=== PATIENT | male | born 1980 | race Caucasian/White ===

== ENCOUNTER 2016-08-03 08:58 | Emergency (ER) | payer OTHER ==
[2016-08-03] MEDS ORDERED: SODIUM CHLORIDE 0.9% 1,000 ML IV ONE (09:26)
--- NOTE | 2016-08-03 09:35 | ED ---
General Adult HPI - General Chief complaint: Back Pain/Injury Stated complaint: back pain Time Seen by Provider: 08/03/16 09:15 Source: patient Mode of arrival: ambulatory Limitations: physical limitation - History of Present Illness Initial comments: 36-year-old male patient presents emergency Department stay for complaints of left posterior rib pain that radiates around to the front. Patient states that this started about a week ago. Patient states at that time he did have one day with some hematuria, but states that has resolved. Patient is also complaining of abdominal soreness. He denies any nausea, vomiting, constipation, diarrhea, urinary urgency, urinary frequency current hematuria, or dysuria. Patient denies any chest pain or shortness of breath. He denies any fever or chills. Patient denies any history of kidney stones. Patient states that occasionally the pain will come on like a spasm, will let up some, but he has a constant dull ache. 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 He denies any trauma or injury. - Related Data Home Medications Medication Instructions Recorded Confirmed Ibuprofen [Motrin] 400 mg PO Q6HR PRN 08/03/16 08/03/16 Previous Rx's Medication Instructions Recorded Cyclobenzaprine [Flexeril] 10 mg PO TID PRN #15 tab 08/03/16 Ibuprofen [Motrin] 600 mg PO Q6HR PRN #30 tab 08/03/16 Allergies Allergy/AdvReac Type Severity Reaction Status Date / Time No Known Allergies Allergy Verified 08/03/16 09:25 Review of Systems ROS Statement: Those systems with pertinent positive or pertinent negative responses have been documented in the HPI. ROS Other: All systems not noted in ROS Statement are negative. Past Medical History Past Medical History: No Reported History History of Any Multi-Drug Resistant Organisms: None Reported Additional Past Surgical History / Comment(s): THUMB Past Psychological History: No Psychological Hx Reported Smoking Status: Current every day smoker Past Alcohol Use History: Occasional Past Drug Use History: None Reported General Exam Limitations: physical limitation General appearance: alert, in no apparent distress Head exam: Present: atraumatic, normocephalic, normal inspection Eye exam: Present: normal appearance, PERRL, EOMI. Absent: scleral icterus, conjunctival injection, periorbital swelling ENT exam: Present: normal exam, mucous membranes moist Neck exam: Present: normal inspection. Absent: tenderness, meningismus, lymphadenopathy Respiratory exam: Present: normal lung sounds bilaterally. Absent: respiratory distress, wheezes, rales, rhonchi, stridor Cardiovascular Exam: Present: regular rate, normal rhythm, normal heart sounds. Absent: systolic murmur, diastolic murmur, rubs, gallop, clicks GI/Abdominal exam: Present: soft, tenderness (Generalized abdominal tenderness) , guarding, normal bowel sounds. Absent: distended, rebound, rigid, organomegaly, mass, other Extremities exam: Present: normal inspection, full ROM, normal capillary refill. Absent: tenderness, pedal edema, joint swelling, calf tenderness Back exam: Present: normal inspection, full ROM, tenderness (Left posterior rib tenderness), CVA tenderness (L), paraspinal tenderness. Absent: CVA tenderness (R), vertebral tenderness, rash noted Neurological exam: Present: alert, oriented X3, CN II-XII intact Psychiatric exam: Present: normal affect, normal mood Skin exam: Present: warm, dry, intact, normal color. Absent: rash Course Vital Signs 08/03/16 09:08 Temperature 99.2 F Pulse Rate 85 Respiratory 18 Rate Blood Pressure 121/77 O2 Sat by Pulse 99 Oximetry Medical Decision Making - Medical Decision Making 36-year-old male patient presented for evaluation of left posterior rib pain and abdominal pain. KUB and chest x-ray were negative for any acute process. Urinalysis did show 14 white blood cells. GC chlamydia and culture added onto the urine. Patient will be treated for urinary tract infection at this time pending results of the culture. Discharged home with antibiotics. Instructions to return for any new, worsening, or concerning symptoms. Instructed to follow up with his primary care physician in one to days. Patient verbalizes understanding and agrees with this plan. - Lab Data Result diagrams: 08/03/16 09:40 08/03/16 09:40 Lab Results 08/03/16 08/03/16 08/03/16 Range/Units 09:40 09:40 09:40 WBC 7.5 (3.8-10.6) k/uL RBC 4.85 (4.30-5.90) m/uL Hgb 14.9 (13.0-17.5) gm/dL Hct 45.4 (39.0-53.0) % MCV 93.7 (80.0-100.0) fL MCH 30.7 (25.0-35.0) pg MCHC 32.8 (31.0-37.0) g/dL RDW 14.1 (11.5-15.5) % Plt Count 255 (150-450) k/uL Neutrophils % 77 % Lymphocytes % 15 % Monocytes % 5 % Eosinophils % 1 % Basophils % 0 % Neutrophils # 5.8 (1.3-7.7) k/uL Lymphocytes # 1.1 (1.0-4.8) k/uL Monocytes # 0.4 (0-1.0) k/uL Eosinophils # 0.1 (0-0.7) k/uL Basophils # 0.0 (0-0.2) k/uL Sodium 141 (137-145) mmol/L Potassium 4.1 (3.5-5.1) mmol/L Chloride 104 (98-107) mmol/L Carbon Dioxide 28 (22-30) mmol/L Anion Gap 9 mmol/L BUN 12 (9-20) mg/dL Creatinine 0.94 (0.66-1.25) mg/dL Est GFR (MDRD) Af Amer >60 (>60 ml/min/1.73 sqM) Est GFR (MDRD) Non-Af >60 (>60 ml/min/1.73 sqM) Glucose 86 (74-99) mg/dL Calcium 9.4 (8.4-10.2) mg/dL Total Bilirubin 0.7 (0.2-1.3) mg/dL AST 45 (17-59) U/L ALT 35 (21-72) U/L Alkaline Phosphatase 104 (38-126) U/L Total Protein 7.4 (6.3-8.2) g/dL Albumin 4.0 (3.5-5.0) g/dL Amylase 52 (30-110) U/L Lipase 60 (23-300) U/L Urine Color Yellow Urine Appearance Clear (Clear) Urine pH 5.5 (5.0-8.0) Ur Specific Sophia 1.012 (1.001-1.035) Urine Protein Negative (Negative) Urine Glucose (UA) Negative (Negative) Urine Ketones Negative (Negative) Urine Blood Negative (Negative) Urine Nitrite Negative (Negative) Urine Bilirubin Negative (Negative) Urine Urobilinogen <2.0 (<2.0) mg/dL Ur Leukocyte Esterase Small H (Negative) Urine RBC 1 (0-5) /hpf Urine WBC 15 H (0-5) /hpf Disposition Clinical Impression: Muscle spasm Disposition: HOME SELF-CARE Instructions: Muscle Spasm (ED) Additional Instructions: Warm moist heat to the painful areas. 20 minutes at a time at least 4 times per day. Take muscle relaxers and anti-inflammatory pain medications as needed. Follow-up with primary care physician for continuing symptoms. Return for any new, worsening, or concerning symptoms. Prescriptions: Cyclobenzaprine [Flexeril] 10 mg PO TID PRN #15 tab PRN Reason: Muscle Spasm Ibuprofen [Motrin] 600 mg PO Q6HR PRN #30 tab PRN Reason: Pain Referrals: None,Stated [Primary Care Provider] - 1-2 days Time of Disposition: 10:52
[2016-08-03 09:53] LABS: Basophils % (A) 0 %; CH 30.9; CHCM 33.2; Eosinophils # (A) 0.1 k/uL (0-0.7); Eosinophils % (A) 1 %; HCT 45.4 % (39.0-53.0); HDW 2.46; HGB 14.9 gm/dL (13.0-17.5); Luc % (Auto) 1; Lymphocytes # (A) 1.1 k/uL (1.0-4.8); Lymphocytes % (A) 15 %; MCH 30.7 pg (25.0-35.0); MCHC 32.8 g/dL (31.0-37.0); MCV 93.7 fL (80.0-100.0); Mean Platelet Volume 7.4; Monocytes # (A) 0.4 k/uL (0-1.0); Monocytes % (A) 5 %; Neutrophils # (A) 5.8 k/uL (1.3-7.7); Neutrophils % (A) 77 %; RBC 4.85 m/uL (4.30-5.90); RDW 14.1 % (11.5-15.5); WBC 7.5 k/uL (3.8-10.6)
[2016-08-03 09:55] LABS: Appearance,Urine Clear (Clear); Bilirubin,Urine Negative (Negative); Glucose,Urine (UA) Negative (Negative); Ketones,Urine Negative (Negative); Leukocyte Esterase,Urine Small (Negative); Nitrite,Urine Negative (Negative); PH, Urine 5.5 (5.0-8.0); Particle Count 759; Protein,Urine Negative (Negative); RBC,Urine 1 /hpf (0-5); Specific Gravity,Urine 1.012 (1.001-1.035); UA Billing (MACRO vs. MICRO) MICRO; Urobilinogen,Urine <2.0 mg/dL (<2.0); WBC,Urine 15 /hpf (0-5)
[2016-08-03 10:04] LABS: ALT 35 U/L (21-72); AST 45 U/L (17-59); Alkaline Phosphatase 104 U/L (38-126); Amylase 52 U/L (30-110); Anion Gap 9 mmol/L; Blood Urea Nitrogen 12 mg/dL (9-20); Calcium 9.4 mg/dL (8.4-10.2); Carbon Dioxide 28 mmol/L (22-30); Chloride 104 mmol/L (98-107); Glucose 86 mg/dL (74-99); Non-African American GFR(MDRD) >60 (>60 ml/min/1.73 sqM); Potassium 4.1 mmol/L (3.5-5.1); Sodium 141 mmol/L (137-145); Total Bilirubin 0.7 mg/dL (0.2-1.3); Total Protein 7.4 g/dL (6.3-8.2)
--- NOTE | 2016-08-03 10:33 | XR ---
EXAMINATION TYPE: XR chest 2V DATE OF EXAM: 08/03/2016 10:23 AM COMPARISON: NONE HISTORY: Left-sided chest pain. TECHNIQUE: Frontal and lateral views of the chest are obtained. FINDINGS: There is no focal air space opacity, pleural effusion, or pneumothorax seen. The cardiac silhouette size is within normal limits. The osseous structures are intact. IMPRESSION: No acute cardiopulmonary process.
--- NOTE | 2016-08-03 10:37 | XR ---
EXAMINATION TYPE: XR KUB DATE OF EXAM: 08/03/2016 10:23 AM CLINICAL HISTORY: Left-sided abdominal pain. TECHNIQUE: 2 upright KUB images of the abdomen are obtained. COMPARISON: None. FINDINGS: Scattered gas is seen in non-distended small bowel loops. Gas and fecal material is seen in non-distended colon. There is no visceromegaly, pneumoperitoneum, or abnormal calcification appr eciated. The lung bases are clear and the osseous structures are intact. IMPRESSION: Overall nonobstructive bowel gas pattern.
[2016-08-03] MEDS ORDERED: KETOROLAC 30 MG/ML 1 ML VIAL IVP STA (10:50)
[2016-08-03] MEDS ORDERED: ORPHENADRINE 30 MG/ML 2 ML VIAL IVP STA (10:50)
[2016-08-03 11:34] VITALS: BP 164/91; PULSE 65; RESP 16; TEMP 98.1
== END 2016-08-03 11:33 | disposition home or self-care (01) ==
LOC: EC 08:58
DX: M62.830 Muscle spasm of back (principal); N39.0 Urinary tract infection, site not specified; F17.200 Nicotine dependence, unspecified, uncomplicated; R07.81 Pleurodynia
CPT/HCPCS: 96361 ×2; 96374 ×2; 96375 ×2; 99283 ×2; 36415; 80053; 82150; 83690; 85025; 81001; 71020; 74000; J2360; J1885

== ENCOUNTER 2019-11-25 13:02 | Observation (INO) | payer OTHER ==
[2019-11-25 13:49] LABS: Basophils % (A) 1 %; Eosinophils % (A) 1 %; HCT 48.8 % (39.0-53.0); HGB 15.7 gm/dL (13.0-17.5); Lymphocytes # (A) 1.3 k/uL (1.0-4.8); Lymphocytes % (A) 24 %; MCH 31.7 pg (25.0-35.0); MCHC 32.3 g/dL (31.0-37.0); MCV 98.4 fL (80.0-100.0); Mean Platelet Volume 7.9; Monocytes # (A) 0.4 k/uL (0-1.0); Monocytes % (A) 8 %; Neutrophils # (A) 3.3 k/uL (1.3-7.7); Neutrophils % (A) 63 %; Platelet Count 227 k/uL (150-450); RBC 4.96 m/uL (4.30-5.90); RDW 14.2 % (11.5-15.5); WBC 5.3 k/uL (3.8-10.6)
[2019-11-25 13:58] LABS: ALT 252 U/L (4-49); AST 231 U/L (17-59); African American GFR (CKD) >90 (>60 ml/min/1.73 sqM); Albumin 5.3 g/dL (3.5-5.0); Alkaline Phosphatase 97 U/L (38-126); Anion Gap 19 mmol/L; Blood Urea Nitrogen 22 mg/dL (9-20); Calcium 9.5 mg/dL (8.4-10.2); Carbon Dioxide 19 mmol/L (22-30); Chloride 101 mmol/L (98-107); Glucose 105 mg/dL (74-99); Non-African American GFR(CKD) >90 (>60 ml/min/1.73 sqM); Potassium 4.4 mmol/L (3.5-5.1); Sodium 139 mmol/L (137-145); Total Bilirubin 0.9 mg/dL (0.2-1.3); Total Protein 8.3 g/dL (6.3-8.2)
[2019-11-25 14:00] LABS: INR 0.9 (<1.2); Partial Thromboplastin Time 23.1 sec (22.0-30.0); Prothrombin Time 9.8 sec (9.0-12.0)
--- NOTE | 2019-11-25 14:12 | ED ---
Neuro HPI - General Chief Complaint: Neuro Symptoms/Deficit Stated Complaint: stroke yesterday Source: patient Mode of arrival: ambulatory Limitations: no limitations - History of Present Illness Is the patient presenting with stroke symptoms?: Yes Last Known Well Date: 11/24/19 Last Known Well Time: 13:30 Initial Comments: Patient is a 39-year-old male with past history of TIA presents emergency room with reported CVA. Patient went into [facility] yesterday at 3 PM after he started experiencing symptoms of a possible stroke. He states around 2 PM he had left-sided hand weakness and complete paralysis of his left lower extremity. He was also having some stuttering. Workup was performed at [facility] to include a CT of the head and CT angiography. Patient was told that he possibly had a stroke and they wanted to transfer him to [facility]. Patient refused to go by ambulance. Patient states that he did have his drive him down there however when they arrived they noted that they were having any visitors and so the patient left. He presents today with the same symptoms. Denies any worsening or improvement of his paralysis. No facial droop. Patient has stuttering however no slurred speech. Decreased sensation in the left lower extremity. Patient able to extend his arm however cannot use his left hand. He denies any chest pain or shortness of breath. No fevers or chills. No recent blunt head trauma. No other alleviating, prec ipitating or modifying factors - Related Data Home Medications: Home Medications Medication Instructions Recorded Confirmed No Known Home Medications 11/25/19 11/25/19 Allergies/Adverse Reactions: Allergies Allergy/AdvReac Type Severity Reaction Status Date / Time amoxicillin Allergy Anaphylaxis Verified 11/25/19 14:31 bee pollen Allergy Anaphylaxis Verified 11/25/19 14:31 Penicillins Allergy Anaphylaxis Verified 11/25/19 14:31 Review of Systems ROS Statement: Those systems with pertinent positive or pertinent negative responses have been documented in the HPI. ROS Other: All systems not noted in ROS Statement are negative. General Exam Limitations: no limitations General appearance: alert, in no apparent distress Head exam: Present: atraumatic, normocephalic, normal inspection Eye exam: Present: normal appearance, PERRL, EOMI. Absent: scleral icterus, conjunctival injection, periorbital swelling ENT exam: Present: normal exam, mucous membranes moist Neck exam: Present: normal inspection. Absent: tenderness, meningismus, lymphadenopathy Respiratory exam: Present: normal lung sounds bilaterally. Absent: respiratory distress, wheezes, rales, rhonchi, stridor Cardiovascular Exam: Present: regular rate, normal rhythm, normal heart sounds. Absent: systolic murmur, diastolic murmur, rubs, gallop, clicks GI/Abdominal exam: Present: soft, normal bowel sounds. Absent: distended, tenderness, guarding, rebound, rigid Extremities exam: Present: normal capillary refill. Absent: tenderness, pedal edema, joint swelling, calf tenderness Back exam: Present: normal inspection Neurological exam: Present: alert, oriented X3, CN II-XII intact, other (stuttering speech. face is symmetric. No dysarthria. 0/5 strength left hand and left leg. 5/5 strength right arm, right leg, left shoulder and elbow extensors and flexors. No response to painful stimulation left leg) Psychiatric exam: Present: normal affect, normal mood Skin exam: Present: warm, dry, intact, normal color. Absent: rash Stroke MDM - Lab Data Result diagrams: 11/25/19 13:35 11/25/19 13:35 Lab Results 11/25/19 11/25/19 11/25/19 Range/Units 13:35 13:35 13:35 WBC 5.3 (3.8-10.6) k/uL RBC 4.96 (4.30-5.90) m/uL Hgb 15.7 (13.0-17.5) gm/dL Hct 48.8 (39.0-53.0) % MCV 98.4 (80.0-100.0) fL MCH 31.7 (25.0-35.0) pg MCHC 32.3 (31.0-37.0) g/dL RDW 14.2 (11.5-15.5) % Plt Count 227 (150-450) k/uL Neutrophils % 63 % Lymphocytes % 24 % Monocytes % 8 % Eosinophils % 1 % Basophils % 1 % Neutrophils # 3.3 (1.3-7.7) k/uL Lymphocytes # 1.3 (1.0-4.8) k/uL Monocytes # 0.4 (0-1.0) k/uL Eosinophils # 0.0 (0-0.7) k/uL Basophils # 0.0 (0-0.2) k/uL PT 9.8 (9.0-12.0) sec INR 0.9 (<1.2) APTT 23.1 (22.0-30.0) sec Sodium 139 (137-145) mmol/L Potassium 4.4 (3.5-5.1) mmol/L Chloride 101 (98-107) mmol/L Carbon Dioxide 19 L (22-30) mmol/L Anion Gap 19 mmol/L BUN 22 H (9-20) mg/dL Creatinine 0.85 (0.66-1.25) mg/dL Est GFR (CKD-EPI)AfAm >90 (>60 ml/min/1.73 sqM) Est GFR (CKD-EPI)NonAf >90 (>60 ml/min/1.73 sqM) Glucose 105 H (74-99) mg/dL Estimated Ave Glu mg/dL Hemoglobin A1c (4.0-6.0) % Calcium 9.5 (8.4-10.2) mg/dL Total Bilirubin 0.9 (0.2-1.3) mg/dL AST 231 H (17-59) U/L ALT 252 H (4-49) U/L Alkaline Phosphatase 97 (38-126) U/L Troponin I (0.000-0.034) ng/mL Total Protein 8.3 H (6.3-8.2) g/dL Albumin 5.3 H (3.5-5.0) g/dL 11/25/19 11/25/19 Range/Units 13:35 13:35 WBC (3.8-10.6) k/uL RBC (4.30-5.90) m/uL Hgb (13.0-17.5) gm/dL Hct (39.0-53.0) % MCV (80.0-100.0) fL MCH (25.0-35.0) pg MCHC (31.0-37.0) g/dL RDW (11.5-15.5) % Plt Count (150-450) k/uL Neutrophils % % Lymphocytes % % Monocytes % % Eosinophils % % Basophils % % Neutrophils # (1.3-7.7) k/uL Lymphocytes # (1.0-4.8) k/uL Monocytes # (0-1.0) k/uL Eosinophils # (0-0.7) k/uL Basophils # (0-0.2) k/uL PT (9.0-12.0) sec INR (<1.2) APTT (22.0-30.0) sec Sodium (137-145) mmol/L Potassium (3.5-5.1) mmol/L Chloride (98-107) mmol/L Carbon Dioxide (22-30) mmol/L Anion Gap mmol/L BUN (9-20) mg/dL Creatinine (0.66-1.25) mg/dL Est GFR (CKD-EPI)AfAm (>60 ml/min/1.73 sqM) Est GFR (CKD-EPI)NonAf (>60 ml/min/1.73 sqM) Glucose (74-99) mg/dL Estimated Ave Glu mg/dL 105 Hemoglobin A1c 5.3 (4.0-6.0) % Calcium (8.4-10.2) mg/dL Total Bilirubin (0.2-1.3) mg/dL AST (17-59) U/L ALT (4-49) U/L Alkaline Phosphatase (38-126) U/L Troponin I <0.012 (0.000-0.034) ng/mL Total Protein (6.3-8.2) g/dL Albumin (3.5-5.0) g/dL - Medical Decision Making Upon arrival patient is placed in a trauma 1. A thorough history and physical exam was performed. Patient does have an NIH stroke scale of 10. Patient is greater than 24 hours from his symptoms. He was sent over for repeat CT of his brain. Laboratory studies were conducted. Lab studies are remarkable for an elevated AST and ALTs. CT of the patient's brain demonstrates no acute findings. Chest x-ray demonstrates no acute cardiopulmonary process. Patient is reevaluated. His NIH remains the same. I discussed diagnosis, differential, treatment options. I did recommend hospital admission for neurology consultation. Dr. Anaya accept admission of the patient. Dr. Hanks is paged to notify her of the consult. We will request records from [facility]. Patient remained in stable condition awaiting a bed on the floor EKG demonstrates a normal sinus rhythm with ventricular rate of 77. NH interval 152. QRS 94. QTC of 427. No acute ST segment elevations or depressions concerning for ischemic changes 11/25/19 13:35 Past Medical History Past Medical History: CVA/TIA History of Any Multi-Drug Resistant Organisms: None Reported Additional Past Surgical History / Comment(s): THUMB Past Psychological History: No Psychological Hx Reported Smoking Status: Current every day smoker Past Alcohol Use History: Daily Past Drug Use History: None Reported - Past Family History Mother Family Medical History: Thyroid Disorder Father Family Medical History: Seizure Disorder Additional Family Medical History / Comment(s): Brain Tumor. Course Vital Signs 11/25/19 11/25/19 11/25/19 13:04 13:18 13:20 Temperature 98.1 F 98.1 F Pulse Rate 94 86 75 Respiratory 18 12 18 Rate Blood Pressure 138/78 130/88 132/104 O2 Sat by Pulse 98 95 98 Oximetry 11/25/19 11/25/19 11/25/19 13:30 13:45 14:00 Temperature Pulse Rate 79 75 78 Respiratory 12 12 12 Rate Blood Pressure 132/104 137/92 118/89 O2 Sat by Pulse 97 97 97 Oximetry 11/25/19 15:18 Temperature 98.1 F Pulse Rate 80 Respiratory 14 Rate Blood Pressure 131/80 O2 Sat by Pulse 98 Oximetry Disposition Clinical Impression: Cerebrovascular accident (CVA) Disposition: ADMITTED IP TO THIS [facility] Condition: Stable Is patient prescribed a controlled substance at d/c from ED?: No Decision to Admit Reason: Admit from EC Decision Date: 11/25/19 Decision Time: 14:40
--- NOTE | 2019-11-25 14:14 | XR ---
EXAMINATION TYPE: XR chest 2V DATE OF EXAM: 11/25/2019 COMPARISON: 08/03/2016 HISTORY: Pain TECHNIQUE: 2 views FINDINGS: Heart and mediastinum are normal. Lungs are clear. Diaphragm is normal. Bony thorax appears normal. There are chest leads. IMPRESSION: Normal chest. No change.
--- NOTE | 2019-11-25 14:23 | CT ---
EXAMINATION TYPE: CT brain wo con DATE OF EXAM: 11/25/2019 COMPARISON: None HISTORY: Neuro deficit, acute, stroke suspected CT DLP: 1099.4 mGycm Automated exposure control for dose reduction was used. Ventricles have normal size. There is no mass effect nor midline shift. There is no sign of intracran ial hemorrhage. There is no evidence of cerebral edema. Calvarium is intact. Temporal bones appear no rmal. Sella turcica appears normal. IMPRESSION: Normal unenhanced head CT scan.
[2019-11-25 16:01] VITALS: BP 107/69; PULSE 74; RESP 16; TEMP 98
--- NOTE | 2019-11-25 17:55 | P.CNNES ---
History of Present Illness Consult date: 11/25/19 Reason for Consult: left hemiparesis Chief complaint: left-sided numbness and stuttering speech, possible stroke History of Present Illness: The patient is a 39-year-old male who is seen in neurologic consultat [facility] on November 25, 2019, via teleneurology. Patient's is present in the room at the time of the evaluation. Upon entry to the room the the patient is leaning over, while sitting on the edge of the bed. His left arm is hanging down. He reports that he has a "giant muscle cramp" in his left arm and he must "hold it down to make it feel better". The patient reports that his left arm "hurts really bad" he states that he has been having intermittent cramping of his left arm, since June 17, 2019. He says it is getting worse. The cramps occur intermittently. The patient reports that in between the cramps, his left arm is numb. He reports that his left arm and leg has been numb since 4 PM yesterday. In addition, since 4 PM yesterday the patient has also had stuttering of his speech. In regards to cramping of his left arm, he reports that it feels as if his arm is in a vice. Apparently yesterday the patient went to [facility] with his left-sided symptoms. He apparently was worked up with a CT scan as well as a CT angiogram. The plan was for him to be transferred to [facility] however when he arrived there, they were not allowing visitors and so he elected to go home. His symptoms continued and so he came into the emergency department at [place]. In the ER, he had a CT scan of his brain and a CT angiogram of the head and neck. Both of these tests were negative for stroke. In addition to his left-sided symptoms, the patient reports having a mild posterior headache. He denies difficulty swallowing. He reports that he is only able to see from the middle of his nose to the right side. He is unable to see to his left side. In regards to walking, the patient reports "I can walk if I don't use my left leg". Review of Systems See history of chief complaint Past Medical History Past Medical History: CVA/TIA Additional Past Medical History / Comment(s): anxiety History of Any Multi-Drug Resistant Organisms: None Reported Additional Past Surgical History / Comment(s): THUMB Past Anesthesia/Blood Transfusion Reactions: No Reported Reaction Past Psychological History: Anxiety Smoking Status: Current every day smoker Past Alcohol Use History: Daily Past Drug Use History: None Reported - Past Family History Mother Family Medical History: Thyroid Disorder Father Family Medical History: Seizure Disorder Additional Family Medical History / Comment(s): Brain Tumor. Medications and Allergies Home Medications Medication Instructions Recorded Confirmed Type No Known Home Medications 11/25/19 11/25/19 History Allergies Allergy/AdvReac Type Severity Reaction Status Date / Time amoxicillin Allergy Anaphylaxis Verified 11/25/19 14:31 bee pollen Allergy Anaphylaxis Verified 11/25/19 14:31 Penicillins Allergy Anaphylaxis Verified 11/25/19 14:31 Physical Examination - Vital Signs Vital Signs: Vital Signs Temp Pulse Pulse Resp BP BP Pulse Ox 11/25/19 16:00 16 11/25/19 15:58 98.0 F 74 16 107/69 95 11/25/19 15:18 98.1 F 80 14 131/80 98 11/25/19 14:00 78 12 118/89 97 11/25/19 13:45 75 12 137/92 97 11/25/19 13:30 79 12 132/104 97 11/25/19 13:20 98.1 F 75 18 132/104 98 11/25/19 13:18 86 12 130/88 95 11/25/19 13:04 98.1 F 94 18 138/78 98 Intake and Output 11/25/19 11/25/19 11/25/19 06:59 14:59 22:59 Other: Weight 145 kg 145 kg Gen.: The patient is a thin, 39-year-old male, who appears to be in moderate distress. HEENT: Head is atraumatic, normocephalic. Fundus not visualized. There is no scleral icterus. Mucous membranes are moist. Neck: Without carotid bruits Heart: Regular rate and rhythm Extremities: Without edema Neurological examination Mental status: The patient is awake and alert. He is oriented 3. His speech is inconsistently stuttering. Cranial nerves: Pupils are equal, round and reactive to light. Visual field testing is inconsistent. The patient reports not seeing off to his left side, however does occasionally blink to threat. Extraocular movements are intact. There is no nystagmus. Patient reports diminished sensation in the left V1, V2 and V3 distributions. There is no facial asymmetry. Hearing is grossly intact. Uvula and palate are midline. Left shoulder shrug is absent. Tongue protrudes midline. Motor: Strength in the right upper and lower extremities is 5/5. Left sided strength testing is inconsistent. The patient appears to make no attempt to shrug his left shoulder. His left arm is passively raised and he makes no attempt to hold it up, however when he is asked to reposition himself in the bed, he is able to hold his left arm up. The patient is observed using his left arm and hand to roll up his pants legs. The patient is observed elevating his left leg when repositioning himself in the bed, yet he is appears to be unable to raise his left leg up from the bed. Zheng sign is positive. Sensation: The patient reports not feeling touch sensation to the left side of the neck, chest, left arm or left leg. Deep tendon reflexes: Right upper extremity reflexes are exaggerated, with the patient moving the same fingers of his hand when each reflex of the upper extremity is assessed. Left upper extremity reflexes are diminished. Bilateral patellar reflexes 1-2+4+. Plantar responses are flexor bilaterally Coordination testing was not assessed Gait not assessed Results - Laboratory Findings CBC and BMP: 11/25/19 13:35 11/25/19 13:35 Abnormal Lab Findings: Abnormal Labs 11/25/19 13:35 Carbon Dioxide 19 L BUN 22 H Glucose 105 H AST 231 H ALT 252 H Total Protein 8.3 H Albumin 5.3 H Assessment and Plan Assessment: 1. Functional left hemiparesis, weakness and stuttering speech-conversion disor alem vs malingering 2. Affect is irritable Plan: 1. MRI of the brain without gadolinium-unlikely to show stroke 2. Stroke workup, including physical therapy, occupational therapy and speech therapy evaluations 3. Consider psychiatry consultation Time with Patient: Greater than 30 (spent 45 minutes with patient via teleneurology)
[2019-11-25 23:08] LABS: Hemoglobin A1C 5.3 % (4.0-6.0)
[2019-11-26] MEDS ORDERED: ASPIRIN 325 MG TAB PO SCH (09:00)
--- NOTE | 2019-11-30 17:32 | P.HPIM ---
History of Present Illness H&P Date: 11/28/19 Patient presented to [facility] emergency room with left-sided numbness and stuttering with his speech, possible acute stroke , patient was admitted to telemetry floor, neurology consultation was requested. Patient was evaluated by neurology. Shortly after he left the hospital AGAINST MEDICAL ADVICE. He was not seen or examined by me during this admission. Past Medical History Past Medical History: CVA/TIA Additional Past Medical History / Comment(s): anxiety History of Any Multi-Drug Resistant Organisms: None Reported Additional Past Surgical History / Comment(s): THUMB Past Anesthesia/Blood Transfusion Reactions: No Reported Reaction Past Psychological History: No Psychological Hx Reported Smoking Status: Current every day smoker Past Alcohol Use History: Daily Past Drug Use History: None Reported - Past Family History Mother Family Medical History: Thyroid Disorder Father Family Medical History: Seizure Disorder Additional Family Medical History / Comment(s): Brain Tumor. Medications and Allergies Home Medications Medication Instructions Recorded Confirmed Type No Known Home Medications 11/25/19 11/25/19 History Allergies Allergy/AdvReac Type Severity Reaction Status Date / Time amoxicillin Allergy Anaphylaxis Verified 11/25/19 14:31 bee pollen Allergy Anaphylaxis Verified 11/25/19 14:31 Penicillins Allergy Anaphylaxis Verified 11/25/19 14:31 Physical Exam Patient was not seen or examined by me during this admission. He left AGAINST MEDICAL ADVICE within 2 hours of admission Results CBC & Chem 7: 11/25/19 13:35 11/25/19 13:35 Thrombosis Risk Factor Assmnt - Choose All That Apply Any of the Below Risk Factors Present?: No Other Risk Factors: No Other congenital or acquired thrombophilia - If yes, enter type in comment: No Each Risk Factor Represents 5 Points: Stroke (< 1 month) Thrombosis Risk Factor Assessment Total Risk Factor Score: 5 Thrombosis Risk Factor Assessment Level: High Risk Assessment and Plan Plan: Patient was not seen or examined by me during this admission he left AGAINST ME DICAL ADVICE within 2 hours of admission Please refer to ER note and neurology note for information
== END 2019-11-25 21:00 | disposition left against medical advice (07) ==
LOC: EC 13:02 → 3SCARD 14:49 → UNDODISOB 11-26 01:01
PROVIDERS: ADMIT Internal Medicine; ATTEND Internal Medicine
DX: I63.9 Cerebral infarction, unspecified (principal); G81.94 Hemiplegia, unspecified affecting left nondominant side; I69.323 Fluency disorder following cerebral infarction; R29.710 NIHSS score 10; Z03.818 Encounter for observation for suspected exposure to other biological agents ruled out; R25.2 Cramp and spasm; F41.9 Anxiety disorder, unspecified; Z83.49 Family history of other endocrine, nutritional and metabolic diseases; Z80.8 Family history of malignant neoplasm of other organs or systems; Z82.0 Family history of epilepsy and other diseases of the nervous system; Z88.0 Allergy status to penicillin; Z91.030 Bee allergy status; F17.200 Nicotine dependence, unspecified, uncomplicated
CPT/HCPCS: 99285; 36415; 93005; 80053; 84484; 85025; 85610; 85730; 83036; 71046; 70450; G0378; U0003

== ENCOUNTER 2020-01-07 02:11 | Emergency (ER) | payer OTHER ==
[2020-01-07 02:23] VITALS: RESP 18; TEMP 97.4
[2020-01-07 02:23] LABS: Glucose,Whole Blood 104 mg/dL (75-99)
--- NOTE | 2020-01-07 02:40 | ED ---
Weakness HPI - General Chief complaint: Weakness Stated complaint: poss neuro Time Seen by Provider: 01/07/20 02:17 Source: patient Mode of arrival: ambulatory - History of Present Illness Initial comments: This patient is a 39-year-old man presenting with complaint of unilateral weakness and difficulty with speech. The patient's has had multiple episodes of these symptoms. He has had stroke workup a number of times and also has followed with neurology. The patient had onset of these symptoms tonight while at work. Patient did have some alcohol earlier but believes this is not contributing. MD Complaint: focal weakness -: hour(s) Location: [facility] Severity: severe Quality: numbness Consistency: constant Improves with: none Worsens with: none Context: history of similar - Related Data Home Medications Medication Instructions Recorded Confirmed No Known Home Medications 11/25/19 11/25/19 Allergies Allergy/AdvReac Type Severity Reaction Status Date / Time amoxicillin Allergy Anaphylaxis Verified 11/25/19 14:31 bee pollen Allergy Anaphylaxis Verified 11/25/19 14:31 Penicillins Allergy Anaphylaxis Verified 11/25/19 14:31 Review of Systems ROS Statement: Those systems with pertinent positive or pertinent negative responses have been documented in the HPI. ROS Other: All systems not noted in ROS Statement are negative. Constitutional: Denies: fever, chills Eyes: Denies: vision change Respiratory: Denies: cough, dyspnea Cardiovascular: Denies: chest pain, palpitations Gastrointestinal: Denies: abdominal pain, vomiting, diarrhea Genitourinary: Denies: dysuria, hematuria Musculoskeletal: Denies: back pain Skin: Denies: rash Neurological: Reports: weakness, numbness. Denies: headache, paresthesias, confusion Past Medical History Past Medical History: CVA/TIA Additional Past Medical History / Comment(s): anxiety History of Any Multi-Drug Resistant Organisms: None Reported Additional Past Surgical History / Comment(s): THUMB Past Anesthesia/Blood Transfusion Reactions: No Reported Reaction Past Psychological History: No Psychological Hx Reported Smoking Status: Current every day smoker Past Alcohol Use History: Daily Past Drug Use History: None Reported - Past Family History Mother Family Medical History: Thyroid Disorder Father Family Medical History: Seizure Disorder Additional Family Medical History / Comment(s): Brain Tumor. General Exam General appearance: alert, in no apparent distress Head exam: Present: atraumatic, normocephalic Eye exam: Present: normal appearance. Absent: scleral icterus, conjunctival injection Neck exam: Present: normal inspection, full ROM. Absent: tenderness Respiratory exam: Present: normal lung sounds bilaterally. Absent: respiratory distress, wheezes, rales, rhonchi, stridor Cardiovascular Exam: Present: regular rate, normal rhythm, normal heart sounds. Absent: systolic murmur, diastolic murmur, rubs, gallop GI/Abdominal exam: Present: soft. Absent: tenderness, guarding, rebound, rigid Extremities exam: Present: normal inspection, normal capillary refill. Absent: pedal edema, calf tenderness Back exam: Present: normal inspection Neurological exam: Present: alert, oriented X3, CN II-XII intact, motor sensory deficit (The patient has left-sided motor deficit.) Skin exam: Present: warm, dry, intact, normal color. Absent: rash Course Vital Signs 01/07/20 01/07/20 01/07/20 02:17 02:22 02:42 Temperature 97.4 F L Pulse Rate 68 71 69 Respiratory 18 18 18 Rate Blood Pressure 136/96 126/95 141/108 O2 Sat by Pulse 98 100 99 Oximetry 01/07/20 01/07/20 01/07/20 02:50 03:07 03:22 Temperature Pulse Rate 70 73 75 Respiratory 18 18 18 Rate Blood Pressure 135/98 125/91 131/91 O2 Sat by Pulse 100 98 96 Oximetry EKG Findings - EKG Results: EKG: interpreted by ERMD, sinus rhythm, normal axis, normal QRS, normal ST/T - Blocks, [place], Hypertrophy, ST Abn: Repolarization changes or abnormalities: Q-T interval prolongation Medical Decision Making - Medical Decision Making Patient is 39-year-old man with recurring episodes of stuttering as well as left-sided weakness. He had an episode of this tonight and presented here for evaluation. Case is discussed with Dr. Thornton, covering for the stroke team. The patient did go for computed tomography scan as well as CT angiogram with the patient refused to have the IV contrast. After review of the computed tomography scan did call back and we discussed the case. I went and spoke with the patient and his partner and discussed indications, risks and benefits of TPA and the patient refuses TPA. In addition, patient refuses admission stating that he is feeling better. His speech had cleared. - Lab Data Result diagrams: 01/07/20 02:40 01/07/20 02:40 Lab Results 01/07/20 01/07/20 01/07/20 Range/Units 02:21 02:40 02:40 WBC 4.3 (3.8-10.6) k/uL RBC 4.75 (4.30-5.90) m/uL Hgb 15.3 (13.0-17.5) gm/dL Hct 45.9 (39.0-53.0) % MCV 96.7 (80.0-100.0) fL MCH 32.3 (25.0-35.0) pg MCHC 33.4 (31.0-37.0) g/dL RDW 13.6 (11.5-15.5) % Plt Count 212 (150-450) k/uL Neutrophils % 57 % Lymphocytes % 32 % Monocytes % 6 % Eosinophils % 1 % Basophils % 1 % Neutrophils # 2.5 (1.3-7.7) k/uL Lymphocytes # 1.4 (1.0-4.8) k/uL Monocytes # 0.3 (0-1.0) k/uL Eosinophils # 0.1 (0-0.7) k/uL Basophils # 0.1 (0-0.2) k/uL PT 9.8 (9.0-12.0) sec INR 0.9 (<1.2) APTT 24.4 (22.0-30.0) sec Sodium (137-145) mmol/L Potassium (3.5-5.1) mmol/L Chloride (98-107) mmol/L Carbon Dioxide (22-30) mmol/L Anion Gap mmol/L BUN (9-20) mg/dL Creatinine (0.66-1.25) mg/dL Est GFR (CKD-EPI)AfAm (>60 ml/min/1.73 sqM) Est GFR (CKD-EPI)NonAf (>60 ml/min/1.73 sqM) Glucose (74-99) mg/dL POC Glucose (mg/dL) 104 H (75-99) mg/dL POC Glu Account Consultant ID Shea, Jamee Calcium (8.4-10.2) mg/dL Total Bilirubin (0.2-1.3) mg/dL AST (17-59) U/L ALT (4-49) U/L Alkaline Phosphatase (38-126) U/L Troponin I (0.000-0.034) ng/mL Total Protein (6.3-8.2) g/dL Albumin (3.5-5.0) g/dL 01/07/20 01/07/20 Range/Units 02:40 02:40 WBC (3.8-10.6) k/uL RBC (4.30-5.90) m/uL Hgb (13.0-17.5) gm/dL Hct (39.0-53.0) % MCV (80.0-100.0) fL MCH (25.0-35.0) pg MCHC (31.0-37.0) g/dL RDW (11.5-15.5) % Plt Count (150-450) k/uL Neutrophils % % Lymphocytes % % Monocytes % % Eosinophils % % Basophils % % Neutrophils # (1.3-7.7) k/uL Lymphocytes # (1.0-4.8) k/uL Monocytes # (0-1.0) k/uL Eosinophils # (0-0.7) k/uL Basophils # (0-0.2) k/uL PT (9.0-12.0) sec INR (<1.2) APTT (22.0-30.0) sec Sodium 142 (137-145) mmol/L Potassium 4.0 (3.5-5.1) mmol/L Chloride 103 (98-107) mmol/L Carbon Dioxide 27 (22-30) mmol/L Anion Gap 12 mmol/L BUN 10 (9-20) mg/dL Creatinine 0.64 L (0.66-1.25) mg/dL Est GFR (CKD-EPI)AfAm >90 (>60 ml/min/1.73 sqM) Est GFR (CKD-EPI)NonAf >90 (>60 ml/min/1.73 sqM) Glucose 99 (74-99) mg/dL POC Glucose (mg/dL) (75-99) mg/dL POC Glu Account Consultant ID Calcium 10.7 H (8.4-10.2) mg/dL Total Bilirubin 0.6 (0.2-1.3) mg/dL AST 139 H (17-59) U/L ALT 110 H (4-49) U/L Alkaline Phosphatase 81 (38-126) U/L Troponin I <0.012 (0.000-0.034) ng/mL Total Protein 8.1 (6.3-8.2) g/dL Albumin 4.9 (3.5-5.0) g/dL Disposition Clinical Impression: TIA (transient ischemic attack) Narrative: TIA versus factitious disorder Disposition: HOME SELF-CARE Condition: Good Instructions (If sedation given, give patient instructions): Transient Ischemic Attack (ED) Is patient prescribed a controlled substance at d/c from ED?: No Referrals: Gian Lambert MD [Primary Care Provider] - 1-2 days
--- NOTE | 2020-01-07 02:59 | CT ---
EXAMINATION TYPE: CT brain wo con for TPA DATE OF EXAM: 01/07/2020 COMPARISON: 11/25/2019 HISTORY: code stroke CT DLP: 1125.4 mGycm Automated exposure control for dose reduction was used. Exam performed without contrast. Ventricles have normal size. There is no mass effect nor midline shift. There is no sign of intracran ial hemorrhage. The calvarium is intact. There is no evidence of cerebral edema. Skull base is intact . IMPRESSION: Negative unenhanced head CT scan. Brain unchanged compared to old exam. There is new bilateral maxillary sinusitis compared to old exam.
--- NOTE | 2020-01-07 03:00 | XR ---
EXAMINATION TYPE: XR chest 1V DATE OF EXAM: 01/07/2020 COMPARISON: 11/25/2019 HISTORY: Altered mental status TECHNIQUE: FINDINGS: Heart is normal. Lungs are clear of infiltrate. There is no heart failure. There are chest leads. Costophrenic angles are clear. IMPRESSION: No active cardiopulmonary disease. No change.
[2020-01-07 03:03] LABS: Basophils # (A) 0.1 k/uL (0-0.2); Basophils % (A) 1 %; Eosinophils # (A) 0.1 k/uL (0-0.7); Eosinophils % (A) 1 %; HCT 45.9 % (39.0-53.0); HGB 15.3 gm/dL (13.0-17.5); Lymphocytes # (A) 1.4 k/uL (1.0-4.8); Lymphocytes % (A) 32 %; MCH 32.3 pg (25.0-35.0); MCHC 33.4 g/dL (31.0-37.0); MCV 96.7 fL (80.0-100.0); Mean Platelet Volume 7.5; Monocytes # (A) 0.3 k/uL (0-1.0); Monocytes % (A) 6 %; Neutrophils # (A) 2.5 k/uL (1.3-7.7); Neutrophils % (A) 57 %; Platelet Count 212 k/uL (150-450); RBC 4.75 m/uL (4.30-5.90); RDW 13.6 % (11.5-15.5); WBC 4.3 k/uL (3.8-10.6)
[2020-01-07 03:07] LABS: INR 0.9 (<1.2); Partial Thromboplastin Time 24.4 sec (22.0-30.0); Prothrombin Time 9.8 sec (9.0-12.0)
[2020-01-07 03:13] LABS: ALT 110 U/L (4-49); AST 139 U/L (17-59); African American GFR (CKD) >90 (>60 ml/min/1.73 sqM); Albumin 4.9 g/dL (3.5-5.0); Alkaline Phosphatase 81 U/L (38-126); Anion Gap 12 mmol/L; Blood Urea Nitrogen 10 mg/dL (9-20); Calcium 10.7 mg/dL (8.4-10.2); Carbon Dioxide 27 mmol/L (22-30); Chloride 103 mmol/L (98-107); Glucose 99 mg/dL (74-99); Non-African American GFR(CKD) >90 (>60 ml/min/1.73 sqM); Sodium 142 mmol/L (137-145); Total Bilirubin 0.6 mg/dL (0.2-1.3); Total Protein 8.1 g/dL (6.3-8.2)
[2020-01-07 03:31] VITALS: BP 131/91; PULSE 75
== END 2020-01-07 04:21 | disposition home or self-care (01) ==
LOC: EC 02:11
DX: G45.9 Transient cerebral ischemic attack, unspecified (principal); F17.200 Nicotine dependence, unspecified, uncomplicated; Z88.0 Allergy status to penicillin; Z91.030 Bee allergy status; Z86.73 Personal history of transient ischemic attack (TIA), and cerebral infarction without residual deficits
CPT/HCPCS: 36415; 70450; 71045; 80053; 84484; 85025; 85610; 85730; 93005; 99285

== ENCOUNTER 2020-09-09 18:32 | Inpatient (IN) | payer MEDICAID, OTHER ==
--- NOTE | 2020-09-09 19:03 | ED ---
General Adult HPI - General Chief complaint: Psychiatric Symptoms Stated complaint: petition Time Seen by Provider: 09/09/20 18:43 Source: police Mode of arrival: ambulatory Limitations: no limitations - History of Present Illness Initial comments: Dictation was produced using [employer] dictation software. please excuse any grammatical, word or spelling errors. This patient was cared for during a federal and state declared state of emergency secondary to Covid 19 Chief Complaint: 40-year-old male brought in by law enforcement for paranoia History of Present Illness: Patient is a 40-year-old male is brought in by law enforcement for paranoia. Patient had a confrontation with a neighbor. Enforcement was called patient is brought to the emergency department. He denies any suicidal ideation. He does feel homicidal though. He states that there is symmetric present are coming after him. Patient denies ever being admitted to the hospital for a psychologic complaint. He has no psychiatric history. States he's never been diagnosed with PTSD. Patient denies taking any medications. The ROS documented in this emergency department record has been reviewed and confirmed by me. Those systems with pertinent positive or negative responses have been documented in the HPI. All other systems are other negative and/or noncontributory. PHYSICAL EXAM: General Impression: Alert and oriented x3, not in acute distress HEENT: Normocephalic atraumatic, extra-ocular movements intact, pupils equal and reactive to light bilaterally, mucous membranes moist, poor dentition Cardiovascular: Heart regular rate and rhythm Chest: Able to complete full sentences, no retractions, no tachypnea Abdomen: abdomen soft, non-tender, non-distended, no organomegaly Musculoskeletal: Pulses present and equal in all extremities, no peripheral edema Motor: no focal deficits noted Neurological: CN II-XII grossly intact, no focal motor or sensory deficits noted Skin: Intact with no visualized rashes Psych: Paranoid ED course: 49-year-old male petitioned by law enforcement for paranoid behavior. Vital signs upon arrival shows her to 116, rest of vital signs within acceptable limits. Patient showing signs of acute psychosis. Patient medically cleared for EPS evaluation. Patient signed out to oncoming physician for follow-up of EPS recommendations. Patient will be admitted to inpatient psychiatry. - Related Data Home Medications Medication Instructions Recorded Confirmed Baclofen 10 mg PO QID PRN 09/09/20 09/09/20 Cyclobenzaprine [Flexeril] 5 mg PO TID PRN 09/09/20 09/09/20 Ergocalciferol (Vitamin D2) 1,250 mcg PO Q28D 09/09/20 09/09/20 [Drisdol (50,000 Iu)] HYDROcodone/APAP 5-325MG [[place] 1 tab PO DAILY PRN 09/09/20 09/09/20 5-325] Ibuprofen [Motrin] 800 mg PO Q6H PRN 09/09/20 09/09/20 Omeprazole 20 mg PO BID PRN 09/09/20 09/09/20 cloNIDine HCL 0.1 mg PO HS 09/09/20 09/09/20 rOPINIRole HCL [Requip] 0.25 mg PO HS PRN 09/09/20 09/09/20 Previous Rx's Medication Instructions Recorded Nicotine 14Mg/24Hr Patch [Habitrol] 1 patch TRANSDERM DAILY 14 Days 09/12/20 patch QUEtiapine [SEROquel] 50 mg PO HS 30 Days tab 09/12/20 Allergies Allergy/AdvReac Type Severity Reaction Status Date / Time amoxicillin Allergy Anaphylaxis Verified 09/10/20 02:49 bee pollen Allergy Anaphylaxis Verified 09/10/20 02:49 Penicillins Allergy Anaphylaxis Verified 09/10/20 02:49 Review of Systems ROS Statement: Those systems with pertinent positive or pertinent negative responses have been documented in the HPI. ROS Other: All systems not noted in ROS Statement are negative. Past Medical History Past Medical History: CVA/TIA Additional Past Medical History / Comment(s): anxiety History of Any Multi-Drug Resistant Organisms: None Reported Past Surgical History: Orthopedic Surgery Additional Past Surgical History / Comment(s): THUMB Past Anesthesia/Blood Transfusion Reactions: No Reported Reaction Past Psychological History: Anxiety, Depression, PTSD Smoking Status: Current every day smoker Past Alcohol Use History: Occasional Past Drug Use History: None Reported - Past Family History Mother Family Medical History: Thyroid Disorder Father Family Medical History: Seizure Disorder Additional Family Medical History / Comment(s): Brain Tumor. General Exam Limitations: no limitations Course Vital Signs 09/09/20 18:33 Temperature 98.7 F Pulse Rate 116 H Respiratory 18 Rate Blood Pressure 150/83 O2 Sat by Pulse 97 Oximetry Medical Decision Making - Lab Data Lab Results 09/09/20 Range/Units 19:10 Coronavirus (PCR) Not Detected (Not Detectd) Disposition Clinical Impression: Psychosis Disposition: ADMITTED IP TO THIS HOSP Condition: Stable
[2020-09-09] MEDS ORDERED: PANTOPRAZOLE 40 MG TABLET PO PRN (23:42)
[2020-09-09] MEDS ORDERED: HYDROcodone/APAP 5-325MG 1 EACH TAB PO PRN (23:42)
[2020-09-09] MEDS ORDERED: BACLOFEN 10 MG TAB PO PRN (23:42)
[2020-09-09] MEDS ORDERED: IBUPROFEN 800 MG TAB PO PRN (23:42)
[2020-09-09] MEDS ORDERED: MAGNESIUM HYDROXIDE 2,400 MG/10 ML CUP PO PRN (23:43)
[2020-09-09] MEDS ORDERED: LORazepam 1 MG TAB PO PRN (23:43)
[2020-09-09] MEDS ORDERED: ACETAMINOPHEN TAB 325 MG TAB PO PRN (23:43)
[2020-09-09] MEDS ORDERED: MAG HYDROX/AL HYDROX/SIMETH 30 ML CUP PO PRN (23:43)
[2020-09-09] MEDS ORDERED: HALOPERIDOL LACTATE 5 MG/ML 1 ML VIAL IM PRN (23:45)
[2020-09-09] MEDS ORDERED: LORazepam 2 MG/ML INJ IM PRN (23:45)
[2020-09-09] MEDS ORDERED: haloperidoL 5 MG TAB PO PRN (23:45)
[2020-09-10] MEDS ORDERED: HALOPERIDOL LACTATE 5 MG/ML 1 ML VIAL IM ONE (02:56)
[2020-09-10] MEDS ORDERED: LORazepam 2 MG/ML INJ IM STA ×2 (02:57→03:06)
[2020-09-10 11:57] VITALS: BMI 17.6
[2020-09-10] MEDS ORDERED: OLANZapine 5 MG TAB PO PRN (13:52)
[2020-09-10] MEDS ORDERED: OLANZapine 10 MG VIAL IM PRN (13:52)
--- NOTE | 2020-09-10 14:13 | P.HP ---
Psychiatric H&P - . H&P Date: 09/10/20 History & Physical: Allergies Allergy/AdvReac Type Severity Reaction Status Date / Time amoxicillin Allergy Anaphylaxis Verified 09/10/20 02:49 bee pollen Allergy Anaphylaxis Verified 09/10/20 02:49 Penicillins Allergy Anaphylaxis Verified 09/10/20 02:49 Vital Signs Temp 97.0 F L 09/10/20 00:16 Pulse 92 09/10/20 00:16 Resp 18 09/10/20 00:16 BP 127/84 09/10/20 00:16 Pulse Ox 98 09/10/20 00:16 Intake & Output 09/09/20 09/10/20 09/10/20 18:59 06:59 18:59 Weight 65.771 kg 60.6 kg 60.6 kg Laboratory Last Values Coronavirus (PCR) Not Detected (Not Detectd) 09/09/20 19:10 09/10/20 12:01 IDENTIFYING DATA: Patient is a 40-year-old male who currently lives with his fiance in a condo and his two-step kids. He states that he has 7 other children and is currently working for a [employer]. HPI: Patient presented to the hospital yesterday and was brought in by the police for paranoia. Apparently according to ER report patient had a confronta tion with his neighbor and was endorsing homicidal ideations however denying any suicidal ideations. According to petition, they appear to describe the patient appears to be hallucinating and believes that people were trying to "snipe him". The patient also states that patient's fianc had claimed that patient had not been taking his "Parkinson's meds". According to nurse's note in the EMR jamie ent was having visual hallucinations last night. Patient was seen today and was agreeable to stricter editorial writer in the office. Patient appears to be tired and disheveled in appearance. He spoke negatively about his "new neighbor" and states that he was feeling threatened by them. He claims that they were knocking on his door and trying to open it. She was rambling and was loosened associations at times. He endorsed paranoia towards his neighbor however spoke kindly about the nursing staff and other patients on the unit. He states "I know what I saw" and was fairly convinced that his neighbor was trying to attack him. He claims that he does hear mild auditory hallucinations however when asked more about it he states "I hear really good". He states that he is currently being followed and that he may have Parkinson's disease and is being seen by a neurologist at [place]. He states that his sleep has been "on and off" and claimed that his mood is mildly depressed. He is denying any anxiety today. Patient denies any suicidal or homicidal ideations intent or plan. At this time patient denies any visual hallucinations. Patient denies any flight of ideas racing thoughts and increased in goal directed behavior. Patient admits to using cigarettes daily claims that he drinks alcohol occasionally. He is denying any other recreational drug use. PAST PSYCHIATRIC HISTORY: Patient states that he has a history of anxiety and depression. Patient denies being on any psychiatric medications. Patient denies any previous psychiatric hospitalizations. He denies seeing a psychiatrist in the past however claims that he was following up with a counselor at [facility] several years ago. Patient denies any history of suicide attempts in the past. PMH: CVA/TIA and possible parkinsons disease ALLERGIES: as per EMR CHEMICAL DEPENDENCY HISTORY: as per HPI FAMILY PSYCHIATRIC/SUBSTANCE USE HISTORY: denies SOCIAL HISTORY: Patient was born and raised in [facility]. He stat es that he completed high school. He states that he went to shelter for a DUI in 2015 and also in 2017. He states that he has 7 kids of his own and 2 stepchildren that he lives with his fiance in a condo. He claims that he currently works at a [employer]. MENTAL STATUS EXAM: General Appearance: Patient appears to be then, tired with bags under his eyes, stated age is alert, directable, and attempts to cooperate. Patient appears to have poor hygiene and grooming. Behavior: Patient is seated without any agitated behavior. Speech: Patient's speech is fluent and nonpressured. Mood/Affect: Patient reports their mood is mildly depressed, affect is congruent and constricted. Suicidality/Homicidality: Patient denies having any homicidal ideation intent or plan. Denies any suicidal ideations intent or plan Perceptions: Patient denies any visual hallucinations and claims that he hears mild auditory hallucinations. Though content/process: Thought content and thought process is linear and goal- directed. Endorsing paranoia towards his neighbor. Memory and concentration: AOX3, grossly intact for the purposes of this session. Can spell "WORLD" backwards Judgment and insight: poor STRENGTHS/WEAKNESSES: strength is that patient is resilient. Weakness is that patient has poor judgment and is impulsive INTELLECT: average IMPRESSIONS: Psychosis unspecified, rule out secondary to a general medical condition (parkinsons) History of depression and anxiety Nicotine dependence PLAN: -Patient is admitted under voluntary status to MHU for stabilization of psychiatric symptoms and safety. Patient has signed adult voluntary form and medication consent and is placed in patient's chart. -Medications : Will start patient on Seroquel 50 mg daily at bedtime for psychosis/mood/insomnia. Can continue with Requip 0.25 mg daily at bedtime PRN for restless leg symptoms. Baclofen 10 mg when necessary for pain. -Zyprexa IM and by mouth PRN for agitation/aggression -Patient was informed of the risks, benefits and side effects of the medication and patient verbally consented to taking the medications. Patient signed med consent form and was placed in chart. -Internal Medicine consult to perform medical evaluation and physical. -NRT - nicotine patch -SW on board for discharge planning. Encourage patient to participate in groups to work on coping skills.
[2020-09-10] MEDS: NICOTINE 14MG/24HR PATCH TRANSDERM SCH (14:56)
--- NOTE | 2020-09-10 18:58 | CONS ---
CONSULTATION CHIEF COMPLAINT: Paranoid delusions. HISTORY OF PRESENT ILLNESS: This gentleman was admitted after he was brought in by the police when he became unruly with a neighbor and expressing paranoid delusions. REVIEW OF SYSTEMS: At the present time, he is lethargic and is not waking up to answer questions. Past medical history, family history, personal and social histories are significant in that he is ALLERGIC to PENICILLIN. When he was last seen in August, he was on clonidine 0.1 q.h.s., ibuprofen 800 q.i.d. p.r.n., Antabuse 250 mg once a night, Cymbalta 60 mg once a day, vitamin D 5000 units a day, Vicodin 5/325, ropinirole 0.25 q.h.s., baclofen 10 mg t.i.d. p.r.n. The only other significant findings from the notes in my office is that he is a smoker and drinks alcohol occasionally. PHYSICAL EXAMINATION: Blood pressure 122/80 with a pulse of 80, respirations of 18. He is afebrile. The rest of the exam is not detailed in that he is sleeping and uncooperative. Head, ears, eyes, nose, mouth and throat appeared to be normal. Chest is clear. Cardiac exam is normal. Abdomen is soft. IMPRESSION: Acute psychosis with paranoid delusions. RECOMMENDATIONS: None at this time. MMODL / IJN: [id number] /
[2020-09-10] MEDS: cloNIDine HCL 0.1 MG TAB PO SCH (21:00)
[2020-09-10] MEDS: QUEtiapine 50 MG TAB PO SCH (21:00)
[2020-09-11] MEDS: NICOTINE 14MG/24HR PATCH TRANSDERM SCH (09:15)
--- NOTE | 2020-09-11 11:48 | P.PN ---
Progress Note - Text Progress Note Date: 09/11/20 Interval History: Patient was seen attending activities group this afternoon and was directable and agreeable to speak with job specification writer in the office. Patient appeared to be more awake and appeared to have improvement in his hygiene and grooming today. He states that overall he is doing a bit better today with regards to his mood and anxiety. He states that he feels overall "bored" and states that he only went to 1 group so far which is the activities group. He states that he plans on going to more groups. He states that he has not spoken with his fiance at home and will plan to do that later on today. He states that he misses his children at this time. He is denying any paranoia or any delusions today. He states that his energy level is fair and he got approximately 8-9 hours of sleep last night. At this time patient denies any suicidal or homical ideations, intent or plan. Patient denies any auditory, visual hallucinations and denies any paranoia or delusions. Patient denies any side effects from the medications and has been compliant with meds. Mental Status Exam: General Appearance: Patient appears to be then, tired with bags under his eyes, stated age is alert, directable, and attempts to cooperate. Patient appears to have poor hygiene and grooming. Behavior: Patient is seated without any agitated behavior. More cooperative today. Speech: Patient's speech is fluent and nonpressured. Mood/Affect: Patient reports their mood is mildly improving, affect is congruent Suicidality/Homicidality: Patient denies having any homicidal ideation intent or plan. Denies any suicidal ideations intent or plan Perceptions: Patient denies any visual hallucinations and claims that he hears mild auditory hallucinations. Though content/process: Thought content and thought process is linear and goal- directed. More logical today. Not endorsing paranoia today. Memory and concentration: AOX3, grossly intact for the purposes of this session. Judgment and insight: Improving mildly Assessment Psychosis unspecified, rule out secondary to a general medical condition (miryam chavez) History of depression and anxiety Nicotine dependence Plan: -Patient continues to meet criteria for inpatient psychiatric admission for symptom stabilization and safety. Patient has signed adult voluntary form and medication consent and was placed in patient's chart. -Medications: Continue Seroquel 50 mg daily at bedtime for psychosis/mood/insomnia. Continue with Requip 0.25 mg daily at bedtime when necessary for restless leg symptoms. Continue with baclofen 10 mg when necessary for pain. -When necessary Zyprexa IM and by mouth prn for agitation/aggression. -NRT - nicotine patch -SW on board for discharge planning. Encouraged the patient to participate in milieu. Likely discharge tomorrow.
[2020-09-11] MEDS: cloNIDine HCL 0.1 MG TAB PO SCH (21:25)
[2020-09-11] MEDS: QUEtiapine 50 MG TAB PO SCH (21:25)
[2020-09-12 06:32] VITALS: BP 108/69; PULSE 64; RESP 16; TEMP 97.7
[2020-09-12] MEDS: NICOTINE 14MG/24HR PATCH TRANSDERM SCH (07:54)
--- NOTE | 2020-09-12 09:10 | P.DS ---
Providers Date of admission: 09/09/20 23:33 Expected date of discharge: 09/12/20 Attending physician: Tomi Ingram MD Consults: 09/09/20 23:43 Consult Physician Routine Consulting Provider: Gian Lambert Consult Reason/Comments: H&P and medical Do you want consulting provider notified?: Yes Primary care physician: Gian Lambert - Discharge Diagnosis(es) (1) Unspecified psychosis Current Visit: Yes Status: Acute Priority: High (2) History of depression Current Visit: Yes Status: Acute Priority: Low (3) History of anxiety Current Visit: Yes Status: Acute Priority: Low (4) Nicotine dependence Current Visit: Yes Status: Acute Priority: Low Hospital Course: Admission HPI: Admission note was completed by public relations writer "Patient is a 40-year-old male who currently lives with his fiance in a condo and his two-step kids. He states that he has 7 other children and is currently working for a [employer]. Patient presented to the hospital yesterday and was brought in by the police for paranoia. Apparently according to ER report patient had a confrontation with his neighbor and was endorsing homicidal ideations however denying any suicidal ideations. According to petition, they appear to describe the patient appears to be hallucinating and believes that people were trying to "snipe him". The patient also states that patient's fianc had claimed that patient had not been taking his "Parkinson's meds". According to nurse's note in the EMR patient was having visual hallucinations last night. Patient was seen today and was agreeable to stricter public relations writer in the office. Patient appears to be tired and disheveled in appearance. He spoke negatively about his "new neighbor" and states that he was feeling threatened by them. He claims that they were knocking on his door and trying to open it. She was rambling and was loosened associations at times. He endorsed paranoia towards his neighbor however spoke kindly about the nursing staff and other patients on the unit. He states "I know what I saw" and was fairly convinced that his neighbor was trying to attack him. He claims that he does hear mild auditory hallucinations however when asked more about it he states "I hear really good". He states that he is currently being followed and that he may have Parkinson's disease and is being seen by a neurologist at [place]. He states that his sleep has been "on and off" and claimed that his mood is mildly depressed. He is denying any anxiety today. Patient denies any suicidal or homicidal ideations intent or plan. At this time patient denies any visual hallucinations. Patient denies any flight of ideas racing thoughts and increased in goal directed behavior. Patient admits to using cigarettes daily claims that he drinks alcohol occasionally. He is denying any other recreational drug use." Hospital course: Upon admission to the unit patient was initially paranoid and experiencing hallucinations. Patient was however directable and agreeable to commence treatment and signed adult voluntary form. Patient got along well with other patients on the unit and followed unit protocol. Patient was compliant with the medications and denied any side effects throughout hospital course. Patient was started on Seroquel 50 mg daily at bedtime for psychosis/mood/insomnia. Patient was also restarted on Requip 0.25 mg daily at bedtime when necessary for restless leg symptoms and the rest of his home medications. Patient spoke of his stressors and engaged in therapy both group and individual. Patient was also seen by medical team for history and physical exam. Throughout the course of the hospitalization patient gradually improved with regards to and his paranoia, hallucinations/psychosis, sleep and became more future oriented with improved insight and judgment. On the day of discharge patient denied any suicidal or homicidal ideations intent or plan denied any auditory or visual hallucinations. Patient endorsed wanting to live for his health and family. The patient denied any access to guns or weapons. Patient denied any paranoia and did not endorse any delusions. Patient does not have a significant history of substance abuse however was counseled on abstaining from all substances including alcohol and marijuana. Patient was also counseled on the medications and need for regular compliance and was encouraged to follow-up with their outpatient appointment for mental health and also for primary care. Prior to discharge a family meeting will be arranged by social worker assistant to answer any questions and ensure safety upon discharge. Mental status exam: General Appearance: Patient appears to be tall, thin, stated age is alert, pleasant, and cooperative. Patient is in no acute distress and has improved hygiene and grooming Behavior: Patient is calmly seated without any agitated behavior. Speech: Patient's speech is fluent and nonpressured. Mood/Affect: Patient reports their mood is "better", affect is congruent and euthymic. Suicidality/Homicidality: Patient denies having any suicidal or homicidal ideation intent or plan. Perceptions: Patient denies any auditory or visual hallucinations. Though content/process: There is no evidence of any delusional thought content and thought process is linear and goal-directed. more future oriented Memory and concentration: AOX3, grossly intact for the purposes of this session. Can spell "WORLD" backwards correctly. Judgment and insight: improved with guarded prognosis Impression: Psychosis unspecified, rule out secondary to a general medical condition (parkinsons) History of depressive disorder History of anxiety Nicotine dependence Plan: -Continue with discharge today as patient has improved and stabilized psychiatrically and is not currently an imminent threat to himself and/or others. -Continue medications: Seroquel 50 mg daily at bedtime for mood/psychosis/insomnia. -Patient was counseled on the need for medication compliance and appropriate follow-up at mental health and also primary care for medical issues. Patient verbalized understanding and agreed. -Social work to arrange for and conduct family meeting to ensure safety upon discharge and answer any questions/concerns. Social work also to arrange for patients follow up appointments for psychiatric care along with follow up with primary care provider. -Patient counseled on abstaining from recreational drugs and marijuana and alcohol. Was informed/educated on the adverse effects on their physical and mental health. Patient verbally agreed and understood. -Patient was instructed to return to the hospital or seek immediate medical care if their psychiatric or medical symptoms do worsen or reoccur. Allergies Allergy/AdvReac Type Severity Reaction Status Date / Time amoxicillin Allergy Anaphylaxis Verified 09/10/20 02:49 bee pollen Allergy Anaphylaxis Verified 09/10/20 02:49 Penicillins Allergy Anaphylaxis Verified 09/10/20 02:49 Laboratory Results Coronavirus (PCR) Not Detected (Not Detectd) 09/09/20 19:10 Vital Signs Temp 97.7 F 09/12/20 06:31 Pulse 64 09/12/20 06:31 Resp 16 09/12/20 06:31 BP 108/69 09/12/20 06:31 Pulse Ox 98 09/10/20 00:16 Patient Condition at Discharge: Stable Plan - Discharge Summary Discharge Rx Participant: No New Discharge Prescriptions: New Nicotine 14Mg/24Hr Patch [Habitrol] 1 patch TRANSDERM DAILY 14 Days patch QUEtiapine [SEROquel] 50 mg PO HS 30 Days tab Continue cloNIDine HCL 0.1 mg PO HS Omeprazole 20 mg PO BID PRN PRN Reason: Gi Upset rOPINIRole HCL [Requip] 0.25 mg PO HS PRN PRN Reason: RESTLESS LEGS/MUSCLE PAIN Ibuprofen [Motrin] 800 mg PO Q6H PRN PRN Reason: Pain HYDROcodone/APAP 5-325MG [Gaston 5-325] 1 tab PO DAILY PRN PRN Reason: Pain Cyclobenzaprine [Flexeril] 5 mg PO TID PRN PRN Reason: Muscle Pain Ergocalciferol (Vitamin D2) [Drisdol (50,000 Iu)] 1,250 mcg PO Q28D Baclofen 10 mg PO QID PRN PRN Reason: Pain Discontinued Disulfiram 250 mg PO HS Discharge Medication List Baclofen 10 mg PO QID PRN 09/09/20 [History] Cyclobenzaprine [Flexeril] 5 mg PO TID PRN 09/09/20 [History] Ergocalciferol (Vitamin D2) [Drisdol (50,000 Iu)] 1,250 mcg PO Q28D 09/09/20 [History] HYDROcodone/APAP 5-325MG [Gaston 5-325] 1 tab PO DAILY PRN 09/09/20 [History] Ibuprofen [Motrin] 800 mg PO Q6H PRN 09/09/20 [History] Omeprazole 20 mg PO BID PRN 09/09/20 [History] cloNIDine HCL 0.1 mg PO HS 09/09/20 [History] rOPINIRole HCL [Requip] 0.25 mg PO HS PRN 09/09/20 [History] Nicotine 14Mg/24Hr Patch [Habitrol] 1 patch TRANSDERM DAILY 14 Days patch 09/12/20 [Rx] QUEtiapine [SEROquel] 50 mg PO HS 30 Days tab 09/12/20 [Rx] Follow up Appointment(s)/Referral(s): [facility] [Outside] - 09/13/20 12:30 pm (w/David by phone) Gian Lambert MD [Primary Care Provider] - 1-2 days Discharge Disposition: HOME SELF-CARE
[2020-09-13] MEDS ORDERED: ERGOCALCIFEROL 1,250 MCG (50,000 IU) CAPSULE PO SCH (09:00)
== END 2020-09-12 11:28 | disposition home or self-care (01) | DRG 885 ==
LOC: EC 18:32 → 3MHU 23:33
PROVIDERS: ADMIT Psychiatry & Neurology Psychiatry; ATTEND Psychiatry & Neurology Psychiatry
DX: F23 Brief psychotic disorder (principal); F43.10 Post-traumatic stress disorder, unspecified; G25.81 Restless legs syndrome; G47.00 Insomnia, unspecified; R45.850 Homicidal ideations; Z79.899 Other long term (current) drug therapy; Z82.0 Family history of epilepsy and other diseases of the nervous system; Z86.73 Personal history of transient ischemic attack (TIA), and cerebral infarction without residual deficits; F17.210 Nicotine dependence, cigarettes, uncomplicated; Z20.822 Contact with and (suspected) exposure to COVID-19
CPT/HCPCS: 82075; 87635; 99285

== ENCOUNTER 2022-03-09 11:51 | Emergency (ER) | payer OTHER ==
[2022-03-09 11:58] VITALS: BP 155/102; PULSE 88; RESP 18; TEMP 98.4
--- NOTE | 2022-03-09 12:36 | XR ---
EXAMINATION TYPE: XR chest 2V DATE OF EXAM: 03/09/2022 12:28 PM COMPARISON: Chest radiograph 01/07/2020, left rib radiographs 03/09/2022. TECHNIQUE: Lateral view of the chest with additional oblique images of the left chest . CLINICAL INDICATION:Male, 41 years old with history of left rib pain crush injury; FINDINGS: Lungs/Pleura: There is no evidence of pleural effusion, focal consolidation, or pneumothorax. Pulmonary vascularity: Unremarkable. Heart/mediastinum: Cardiomediastinal silhouette is unremarkable. Musculoskeletal: No acute osseous pathology. No displaced rib fractures identified. IMPRESSION: 1. No acute cardiopulmonary disease/process. 2. No displaced left-sided rib fractures identified.
--- NOTE | 2022-03-09 12:45 | ED ---
General Adult HPI - General Chief complaint: Chest Pain Stated complaint: Struck by washing machine Time Seen by Provider: 03/09/22 12:34 Source: patient, family, RN notes reviewed Mode of arrival: wheelchair Limitations: no limitations - History of Present Illness Initial comments: Patient is a pleasant 41-year-old male presenting to the emergency department after getting struck by a washing machine. They estimate delayed on this was 320 pounds. They're trying to load onto a truck when it slipped back. It did strike him in the left ribs and he was able to push it off. Patient was not pinned under the washing machine. Patient only complains of discomfort left ribs. Discomfort increases with movement and deep breaths. No other area of injury or concern. No head injury or loss of consciousness. - Related Data Home Medications Medication Instructions Recorded Confirmed Baclofen 10 mg PO QID PRN 09/09/20 09/09/20 Cyclobenzaprine [Flexeril] 5 mg PO TID PRN 09/09/20 09/09/20 Ergocalciferol (Vitamin D2) 1,250 mcg PO Q28D 09/09/20 09/09/20 [Drisdol (50,000 Iu)] HYDROcodone/APAP 5-325MG [Tiller 1 tab PO DAILY PRN 09/09/20 09/09/20 5-325] Ibuprofen [Motrin] 800 mg PO Q6H PRN 09/09/20 09/09/20 Omeprazole 20 mg PO BID PRN 09/09/20 09/09/20 cloNIDine HCL 0.1 mg PO HS 09/09/20 09/09/20 rOPINIRole HCL [Requip] 0.25 mg PO HS PRN 09/09/20 09/09/20 Previous Rx's Medication Instructions Recorded Nicotine 14Mg/24Hr Patch [Habitrol] 1 patch TRANSDERM DAILY 14 Days 09/12/20 patch QUEtiapine [SEROquel] 50 mg PO HS 30 Days tab 09/12/20 Allergies Allergy/AdvReac Type Severity Reaction Status Date / Time amoxicillin Allergy Anaphylaxis Verified 03/09/22 11:59 bee pollen Allergy Anaphylaxis Verified 03/09/22 11:59 Penicillins Allergy Anaphylaxis Verified 03/09/22 11:59 Review of Systems ROS Statement: Those systems with pertinent positive or pertinent negative responses have been documented in the HPI. ROS Other: All systems not noted in ROS Statement are negative. Constitutional: Denies: fever Eyes: Denies: eye pain ENT: Denies: ear pain Respiratory: Reports: as per HPI. Denies: cough Cardiovascular: Reports: as per HPI Endocrine: Denies: fatigue Gastrointestinal: Denies: abdominal pain Genitourinary: Denies: dysuria Musculoskeletal: Denies: back pain Skin: Denies: rash Neurological: Denies: headache, weakness Past Medical History Past Medical History: CVA/TIA Additional Past Medical History / Comment(s): anxiety History of Any Multi-Drug Resistant Organisms: None Reported Past Surgical History: Orthopedic Surgery Additional Past Surgical History / Comment(s): THUMB Past Anesthesia/Blood Transfusion Reactions: No Reported Reaction Past Psychological History: Anxiety, Depression, PTSD Smoking Status: Current every day smoker Past Alcohol Use History: Occasional Past Drug Use History: None Reported - Past Family History Mother Family Medical History: Thyroid Disorder Father Family Medical History: Seizure Disorder Additional Family Medical History / Comment(s): Brain Tumor. General Exam Limitations: no limitations General appearance: alert, in no apparent distress Head exam: Present: atraumatic, normocephalic Eye exam: Present: normal appearance ENT exam: Present: normal exam Neck exam: Present: normal inspection. Absent: tenderness Respiratory exam: Present: normal lung sounds bilaterally, chest wall tenderness (Left lateral and posterior mid ribs) Cardiovascular Exam: Present: regular rate, normal rhythm GI/Abdominal exam: Present: soft. Absent: distended, tenderness, guarding, rebound, rigid Extremities exam: Present: normal inspection, full ROM. Absent: tenderness Back exam: Present: other (Some tenderness left mid posterior lateral ribs. Otherwise no back tenderness. No vertebral tenderness.). Absent: vertebral tenderness Neurological exam: Present: alert. Absent: motor sensory deficit Psychiatric exam: Present: normal affect, normal mood Skin exam: Present: normal color Course Vital Signs 03/09/22 11:55 Temperature 98.4 F Pulse Rate 88 Respiratory 18 Rate Blood Pressure 155/102 O2 Sat by Pulse 98 Oximetry Medical Decision Making - Medical Decision Making Patient reevaluated and resting comfortably in bed. Patient still refuses pain medication. Patient and family updated on results and need for follow-up. Patient will receive incentive spirometry prior to discharge instruction. - Radiology Data Radiology results: image reviewed (Chest and left rib x-rays did not reveal acute abnormality) Disposition Clinical Impression: Chest wall contusion Disposition: HOME SELF-CARE Condition: Stable Instructions (If sedation given, give patient instructions): Blunt Chest Trauma (ED) Additional Instructions: Incentive spirometry as directed. Continue Motrin as needed. Return for difficulty breathing, increased pain, worsening symptoms or other areas of concern. Please follow-up with primary care physician in the next couple days for recheck. Is patient prescribed a controlled substance at d/c from ED?: No Referrals: Wicho Brandt MD [STAFF PHYSICIAN] - 1-2 days Time of Disposition: 12:54
== END 2022-03-09 13:15 | disposition home or self-care (01) ==
LOC: EC 11:51
DX: S20.219A Contusion of unspecified front wall of thorax, initial encounter (principal); Z86.73 Personal history of transient ischemic attack (TIA), and cerebral infarction without residual deficits; F41.9 Anxiety disorder, unspecified; F32.A Depression, unspecified; F17.200 Nicotine dependence, unspecified, uncomplicated; Z88.0 Allergy status to penicillin; Z91.030 Bee allergy status; Z79.899 Other long term (current) drug therapy; W29.2XXA Contact with other powered household machinery, initial encounter
CPT/HCPCS: 71046; 99285

== ENCOUNTER 2022-04-04 19:44 | Emergency (ER) | payer OTHER ==
[2022-04-04 20:14] VITALS: BP 114/71; PULSE 125; RESP 20; TEMP 98.2
[2022-04-04] MEDS ORDERED: KETOROLAC 15 MG/ML 1 ML VIAL IM STA (20:29)
[2022-04-04] MEDS ORDERED: methocarbamoL 500 MG TAB PO STA (20:29)
--- NOTE | 2022-04-04 21:20 | XR ---
EXAMINATION TYPE: XR foot complete LT DATE OF EXAM: 04/04/2022 COMPARISON: NONE HISTORY: Pain TECHNIQUE: 3 views FINDINGS: There is nondisplaced fracture across the base of the fifth metatarsal. The toes are intact . Joint spaces are normal.. IMPRESSION: Acute proximal fifth metatarsal nondisplaced fracture.
--- NOTE | 2022-04-04 21:25 | XR ---
EXAMINATION TYPE: XR ankle complete LT DATE OF EXAM: 04/04/2022 COMPARISON: NONE HISTORY: Pain TECHNIQUE: 3 view FINDINGS: Ankle mortise is anatomic. There is no fracture nor dislocation. Ankle joint spaces are nor mal. IMPRESSION: Negative left ankle exam. No fracture.
[2022-04-04] MEDS ORDERED: ACET/COD 300 MG/30 MG STARTER PACK 6 TAB BTL PO STA (22:00)
--- NOTE | 2022-04-04 22:02 | ED ---
General Adult HPI - General Chief complaint: Extremity Injury, Lower Stated complaint: Left Foot Injury Time Seen by Provider: 04/04/22 20:20 Source: patient, family, RN notes reviewed, Caregiver Mode of arrival: ambulatory Limitations: no limitations - History of Present Illness Initial comments: Patient is a 41-year-old male with past medical history remarkable for anxiety, Parkinson's disease who presents emergency Department complaining of left foot pain. Patient states that his left leg fell asleep, while he was sitting on the toilet this morning an approximate 6 AM. Patient states he woke up to use the restroom, felt asleep on the toilet was asleep for approximately 5-10 minutes. States that when he awoke he realized he was sleeping and went to stand up but his leg was asleep. Patient subsequently inverted his left ankle and fell onto the ground. Has been dealing with pain to left foot since then. Has been crawling around at home. Presents for further evaluation of this time. No other injuries. Did not hit his head. Did not lose consciousness. Complains of diffuse left foot pain. Somewhat worse over the lateral aspect. Reduced range of motion secondary to pain. No sensory deficits. Presents for further evaluation at this time. - Related Data Home Medications Medication Instructions Recorded Confirmed Baclofen 10 mg PO QID PRN 09/09/20 09/09/20 Cyclobenzaprine [Flexeril] 5 mg PO TID PRN 09/09/20 09/09/20 Ergocalciferol (Vitamin D2) 1,250 mcg PO Q28D 09/09/20 09/09/20 [Drisdol (50,000 Iu)] HYDROcodone/APAP 5-325MG [[place] 1 tab PO DAILY PRN 09/09/20 09/09/20 5-325] Ibuprofen [Motrin] 800 mg PO Q6H PRN 09/09/20 09/09/20 Omeprazole 20 mg PO BID PRN 09/09/20 09/09/20 cloNIDine HCL 0.1 mg PO HS 09/09/20 09/09/20 rOPINIRole HCL [Requip] 0.25 mg PO HS PRN 09/09/20 09/09/20 Previous Rx's Medication Instructions Recorded Nicotine 14Mg/24Hr Patch [Habitrol] 1 patch TRANSDERM DAILY 14 Days 09/12/20 patch QUEtiapine [SEROquel] 50 mg PO HS 30 Days tab 09/12/20 Allergies Allergy/AdvReac Type Severity Reaction Status Date / Time amoxicillin Allergy Anaphylaxis Verified 04/04/22 20:14 bee pollen Allergy Anaphylaxis Verified 04/04/22 20:14 Penicillins Allergy Anaphylaxis Verified 04/04/22 20:14 acetaminophen [From [place]] AdvReac Nausea & Verified 04/04/22 20:14 Vomiting hydrocodone [From [place]] AdvReac Nausea & Verified 04/04/22 20:14 Vomiting Review of Systems ROS Statement: Those systems with pertinent positive or pertinent negative responses have been documented in the HPI. Review of Systems: CONST: Denies fever EYES: Denies blurry vision ENT: Denies nasal congestion C/V: Denies Chest pain RESP: Denies shortness of breath GI: Denies abdominal pain : Denies dysuria SKIN: Denies rash. MSK: Endorses left foot pain. NEURO: Denies headache ROS Other: All systems not noted in ROS Statement are negative. Past Medical History Past Medical History: CVA/TIA Additional Past Medical History / Comment(s): anxiety, parkinson History of Any Multi-Drug Resistant Organisms: None Reported Past Surgical History: Orthopedic Surgery Additional Past Surgical History / Comment(s): THUMB Past Anesthesia/Blood Transfusion Reactions: No Reported Reaction Past Psychological History: Anxiety, Depression, PTSD Smoking Status: Current every day smoker Past Alcohol Use History: Occasional Past Drug Use History: None Reported - Past Family History Mother Family Medical History: Thyroid Disorder Father Family Medical History: Seizure Disorder Additional Family Medical History / Comment(s): Brain Tumor. General Exam - General Exam Comments Initial Comments: General: Appears in moderate distress secondary to left foot pain. HEAD: Normal with no signs of head trauma. EYES: EOMI ENT: Hearing grossly intact RESPIRATORY: No respiratory distress C/V: Mild tachycardia. Peripheral pulses 2+ intact throughout. Good capillary refill less than 2 seconds in the left distal toes. ABD: Nondistended EXT: Reduced range of motion of the left ankle and foot secondary to pain. Mild movement of the toes which hurts with movement. Lungs of diffuse pain to the left foot. No knee pain. No tibia or fibula pain. No left hip pain. Normal range of motion of the left knee, hip. Patient's emotional left ankle, toes. No obvious deformity. Mild edema. SKIN: No rashes or lesions observed on exposed skin. NEURO: Alert and oriented 4. No focal deficits. Limitations: no limitations Course Vital Signs 04/04/22 20:12 Temperature 98.2 F Pulse Rate 125 H Respiratory 20 Rate Blood Pressure 114/71 O2 Sat by Pulse 95 Oximetry Medical Decision Making - Medical Decision Making Based on the patient's presentation and physical exam, I'm concerned for left foot injury. He does seem to have mild pain out of proportion, which she does state occasionally happens for him but with his stated history of his leg falling asleep on him, we will obtain a screening CPK in addition to left foot and ankle x-rays. He was in agreement this plan. He refuses narcotics at this time and will be given a Toradol shot. No further laboratory studies or imaging or just right at this time. Vital signs within acceptable limits. CPK was within normal limits. Left foot and ankle x-ray were interpreted by myself and reveals a proximal fifth metatarsal nondisplaced fracture. It appears to be borderline Workman versus pseudo-Workman fracture at this time. I discussed the findings with the patient. Expressed understanding. We will place him in an ankle splint, given crutches and make him nonweightbearing. Strict return instructions follow-up with orthopedic surgery within the next 2-3 days. He will be given contact information for them. He was in agreement this plan. Patient tolerated the procedure well Neurovascularly intact following the procedure. I instructed the patient to follow up with their PCP in the next 1-3 days. I provided contact information for follow up with Dr. Keller. I explained that the patient should return to the emergency department if they experience any worsening symptoms. Strict return precautions were discussed with the patient. The patient expressed understanding of these instructions. I answered all questions that the patient had. The patient was discharged home in good condition with their prescriptions and follow up information. - Lab Data Lab Results 04/04/22 Range/Units 20:41 Creatine Kinase 133 (55-170) U/L Disposition Clinical Impression: Nondisplaced fracture of fifth left metatarsal bone Disposition: HOME SELF-CARE Condition: Fair Instructions (If sedation given, give patient instructions): Foot Fracture in Adults (ED) Additional Instructions: Workman fracture. Is patient prescribed a controlled substance at d/c from ED?: No Referrals: None,Stated [Primary Care Provider] - 1-2 days Mars Keller MD [Medical Doctor] - 1-2 days Time of Disposition: 21:50
== END 2022-04-04 22:36 | disposition home or self-care (01) ==
LOC: EC 19:44
DX: S92.355A Nondisplaced fracture of fifth metatarsal bone, left foot, initial encounter for closed fracture (principal); Z86.73 Personal history of transient ischemic attack (TIA), and cerebral infarction without residual deficits; F41.9 Anxiety disorder, unspecified; F32.A Depression, unspecified; F17.200 Nicotine dependence, unspecified, uncomplicated; Z88.0 Allergy status to penicillin; Z88.6 Allergy status to analgesic agent; Z88.5 Allergy status to narcotic agent; Z91.030 Bee allergy status; W18.11XA Fall from or off toilet without subsequent striking against object, initial encounter
CPT/HCPCS: 96372; 36415; 82550; 73610; 73630; 99284; J1885

== ENCOUNTER 2022-09-30 21:00 | Emergency (ER) | payer OTHER ==
--- NOTE | 2022-09-30 22:34 | XR ---
EXAMINATION TYPE: XR sacrum coccyx DATE OF EXAM: 09/30/2022 10:29 PM INDICATION: Patient age:Male; 42 years old; Reason for study: pain; PHH. COMPARISON: None TECHNIQUE: The sacrum/coccyx was examined in 3 projections. FINDINGS: There is no evidence of fracture or dislocation. There is no soft tissue abnormality. No a bnormal calcifications are present. IMPRESSION: No acute osseous pathology.
[2022-09-30] MEDS ORDERED: LIDOCAINE 5% PATCH TOPICAL SCH (23:00)
[2022-09-30] MEDS ORDERED: KETOROLAC 15 MG/ML 1 ML VIAL IM STA (23:00)
--- NOTE | 2022-09-30 23:02 | ED ---
General Adult HPI - General Chief complaint: Back Pain/Injury Stated complaint: Tailbone Injury Time Seen by Provider: 09/30/22 22:44 Source: patient Mode of arrival: ambulatory Limitations: no limitations - History of Present Illness Initial comments: This is a 42-year-old male with a past medical history including Parkinson's disease presents emergency department with his after he was loading plywood onto a truck when he fell backward, landing on the trailer hitch on his coccyx. The patient did state that he had pain in that area immediately however was trying to see if it would improve at home however the pain became so severe the last 2 days he came to the emergency department for further evaluation. The patient on arrival was able to emulate into the emergency department. The patient denied any other acute pain or distress and noted that he did not hit his head and did not lose consciousness. - Related Data Home Medications Medication Instructions Recorded Confirmed Baclofen 10 mg PO QID PRN 09/09/20 09/09/20 Cyclobenzaprine [Flexeril] 5 mg PO TID PRN 09/09/20 09/09/20 Ergocalciferol (Vitamin D2) 1,250 mcg PO Q28D 09/09/20 09/09/20 [Drisdol (50,000 Iu)] HYDROcodone/APAP 5-325MG [[place] 1 tab PO DAILY PRN 09/09/20 09/09/20 5-325] Ibuprofen [Motrin] 800 mg PO Q6H PRN 09/09/20 09/09/20 Omeprazole 20 mg PO BID PRN 09/09/20 09/09/20 cloNIDine HCL 0.1 mg PO HS 09/09/20 09/09/20 rOPINIRole HCL [Requip] 0.25 mg PO HS PRN 09/09/20 09/09/20 Previous Rx's Medication Instructions Recorded Nicotine 14Mg/24Hr Patch [Habitrol] 1 patch TRANSDERM DAILY 14 Days 09/12/20 patch QUEtiapine [SEROquel] 50 mg PO HS 30 Days tab 09/12/20 Ketorolac [Toradol] 10 mg PO TID #30 tab 09/30/22 Lidocaine 5% Patch [Lidoderm] 1 patch TOPICAL DAILY #14 patch 09/30/22 Allergies Allergy/AdvReac Type Severity Reaction Status Date / Time amoxicillin Allergy Anaphylaxis Verified 09/30/22 21:26 bee pollen Allergy Anaphylaxis Verified 09/30/22 21:26 Penicillins Allergy Anaphylaxis Verified 09/30/22 21:26 acetaminophen [From [place]] AdvReac Nausea & Verified 09/30/22 21:26 Vomiting hydrocodone [From [place]] AdvReac Nausea & Verified 09/30/22 21:26 Vomiting Review of Systems ROS Statement: Those systems with pertinent positive or pertinent negative responses have been documented in the HPI. ROS Other: All systems not noted in ROS Statement are negative. Past Medical History Past Medical History: CVA/TIA Additional Past Medical History / Comment(s): anxiety, parkinson History of Any Multi-Drug Resistant Organisms: None Reported Past Surgical History: Orthopedic Surgery Additional Past Surgical History / Comment(s): THUMB Past Anesthesia/Blood Transfusion Reactions: No Reported Reaction Past Psychological History: Anxiety, Depression, PTSD Smoking Status: Current every day smoker Past Alcohol Use History: Occasional Past Drug Use History: None Reported - Past Family History Mother Family Medical History: Thyroid Disorder Father Family Medical History: Seizure Disorder Additional Family Medical History / Comment(s): Brain Tumor. General Exam Limitations: no limitations General appearance: alert, in no apparent distress Head exam: Present: atraumatic, normocephalic, normal inspection Eye exam: Present: normal appearance, PERRL Pupils: Present: normal accommodation ENT exam: Present: normal exam, normal oropharynx, mucous membranes moist Neck exam: Present: normal inspection, full ROM Respiratory exam: Present: normal lung sounds bilaterally Cardiovascular Exam: Present: regular rate, normal rhythm, normal heart sounds GI/Abdominal exam: Present: soft, normal bowel sounds Extremities exam: Present: normal inspection, full ROM Back exam: Present: normal inspection, full ROM, tenderness (TTP over the coccyx without any deformity noted.) Neurological exam: Present: alert, oriented X3, CN II-XII intact Psychiatric exam: Present: normal affect, normal mood Skin exam: Present: warm, dry Course Vital Signs 09/30/22 09/30/22 21:24 23:15 Temperature 98.0 F 98.2 F Pulse Rate 106 H 92 Respiratory 20 16 Rate Blood Pressure 115/78 120/78 O2 Sat by Pulse 95 96 Oximetry Medical Decision Making - Medical Decision Making Was pt. sent in by a medical professional or institution (, PA, SENIOR PROGRAM ANALYST, urgent care, hospital, or fci...) When possible be specific @ -No Did you speak to anyone other than the patient for history (EMS, parent, family, police, friend...)? What history was obtained from this source @ -No Did you review nursing and triage notes (agree or disagree)? Why? @ -I reviewed and agree with nursing and triage notes Were old charts reviewed (outside hosp., previous admission, EMS record, old EKG, old radiological studies, urgent care reports/EKG's, fci records)? Report findings @ -No old charts were reviewed Differential Diagnosis (chest pain, altered mental status, abdominal pain women, abdominal pain men, vaginal bleeding, weakness, fever, dyspnea, syncope, headache, dizziness, GI bleed, back pain, seizure, CVA, palpatations, mental health)? @ -Coccyx contusion, coccyx fracture, soft tissue contusion EKG interpreted by me (3pts min.). @ -None X-rays interpreted by me (1pt min.). @ -X-ray of the sacrum and coccyx was obtained and was interpreted by myself showing no acute fracture or pathology CT interpreted by me (1pt min.). @ -None done U/S interpreted by me (1pt. min.). @ -None done What testing was considered but not performed or refused? (CT, X-rays, U/S, labs)? Why? @ -None What meds were considered but not given or refused? Why? @ -None Did you discuss the management of the patient with other professionals (professionals i.e. , PA, SENIOR PROGRAM ANALYST, lab, RT, psych nurse, social media sr strategy manager, drafter automotive design layout, teacher, classifications officer cc/cm, case operator)? Give summary @ -No Was smoking cessation discussed for >3mins.? @ -No Was critical care preformed (if so, how long)? @ -No Were there social determinants of health that impacted care today? How? (Homelessness, low income, unemployed, alcoholism, drug addiction, transportation, low edu. Level, literacy, decrease access to med. care, assisted, rehab)? @ -No Was there de-escalation of care discussed even if they declined (Discuss DNR or withdrawal of care, Hospice)? DNR status @ -No What co-morbidities impacted this encounter? (DM, HTN, Smoking, COPD, CAD, Cancer, CVA, ARF, Chemo, Hep., AIDS, mental health diagnosis, sleep apnea, morbid obesity)? @ -Parkinsons Was patient admitted / discharged? Hospital course, mention meds given and route, prescriptions, significant lab abnormalities, going to OR and other pertinent info. @ -The patient was seen and evaluated emergency department. Physical exam, the patient was laying in bed without any acute distress. Vital signs admission were stable. X-rays of the coccyx was obtained and was negative and the patient likely had a contusion noted over the bony process. The patient was given a dose of Toradol as well as a lidocaine patch in the emergency department and on reevaluation had improvement of his pain. The patient was given a prescription for lidocaine patch as well as Toradol to be taken at home. The patient was advised to follow-up with his private care physician for further workup and evaluation and to report back to the [facility] department if he had worsening pain or distress. The patient was agreeable to this and all his questions were answered. The patient was discharged home in stable condition. Undiagnosed new problem with uncertain prognosis? @ -No Drug Therapy requiring intensive monitoring for toxicity (Heparin, Nitro, Insulin, Cardizem)? @ -No Were any procedures done? @ -No Diagnosis/symptom? @ -Coccyx contusion Acute, or Chronic, or Acute on Chronic? @ -Acute Uncomplicated (without systemic symptoms) or Complicated (systemic symptoms)? @ -Uncomplicated Side effects of treatment? @ -No Exacerbation, Progression, or Severe Exacerbation? @ -No Poses a threat to life or bodily function? How? (Chest pain, [place], [place], pneumonia, PE, COPD, DKA, ARF, appy, cholecystitis, CVA, Diverticulitis, Homicidal, Suicidal, threat to staff... and all critical care pts) @ -No Disposition Clinical Impression: Coccyx contusion Disposition: HOME SELF-CARE Condition: Stable Instructions (If sedation given, give patient instructions): Contusion in Adults (ED) Prescriptions: Lidocaine 5% Patch [Lidoderm] 1 patch TOPICAL DAILY #14 patch Ketorolac [Toradol] 10 mg PO TID #30 tab Is patient prescribed a controlled substance at d/c from ED?: No Referrals: None,Stated [Primary Care Provider] - 1-2 days Time of Disposition: 22:30
[2022-09-30 23:17] VITALS: BP 120/78; PULSE 92; RESP 16; TEMP 98.2
== END 2022-09-30 23:36 | disposition home or self-care (01) ==
LOC: EC 21:00
DX: S30.0XXA Contusion of lower back and pelvis, initial encounter (principal); G20 Parkinson's disease; F32.A Depression, unspecified; F41.9 Anxiety disorder, unspecified; F17.200 Nicotine dependence, unspecified, uncomplicated; Z79.899 Other long term (current) drug therapy; Z88.0 Allergy status to penicillin; Z88.5 Allergy status to narcotic agent; Z88.6 Allergy status to analgesic agent; Z91.030 Bee allergy status; Z86.73 Personal history of transient ischemic attack (TIA), and cerebral infarction without residual deficits; W19.XXXA Unspecified fall, initial encounter
CPT/HCPCS: 72220; 99283; 96372; J1885

== ENCOUNTER 2023-04-09 16:50 | Emergency (ER) | payer OTHER ==
[2023-04-09 17:21] VITALS: RESP 20
--- NOTE | 2023-04-09 18:03 | XR ---
EXAMINATION TYPE: XR hand complete RT DATE OF EXAM: 04/09/2023 COMPARISON: NONE HISTORY: 42-year-old male crush injury second through fifth digits, pain TECHNIQUE: 3 views FINDINGS: No acute fracture, subluxation, or dislocation is seen. Joint spaces are maintained. IMPRESSION: No acute osseous abnormality seen.
--- NOTE | 2023-04-09 18:05 | ED ---
General Adult HPI - General Chief complaint: Extremity Injury, Upper Stated complaint: hand injury Time Seen by Provider: 04/09/23 17:18 Source: patient, family, RN notes reviewed Mode of arrival: ambulatory Limitations: no limitations - History of Present Illness Initial comments: 42-year-old male presents to the emergency department with chief complaint of right hand injury. He states that he was working on a vehicle today when his hand got crushed in the U joint. He states that this has affected his 2-5th digits. He reports decreased range of motion to his fingers. He does have small abrasions to his fingers. He states that he is up-to-date on tetanus vaccination. - Related Data Home Medications Medication Instructions Recorded Confirmed Baclofen 10 mg PO QID PRN 09/09/20 09/09/20 Cyclobenzaprine [Flexeril] 5 mg PO TID PRN 09/09/20 09/09/20 Ergocalciferol (Vitamin D2) 1,250 mcg PO Q28D 09/09/20 09/09/20 [Drisdol (50,000 Iu)] HYDROcodone/APAP 5-325MG [[place] 1 tab PO DAILY PRN 09/09/20 09/09/20 5-325] Ibuprofen [Motrin] 800 mg PO Q6H PRN 09/09/20 09/09/20 Omeprazole 20 mg PO BID PRN 09/09/20 09/09/20 cloNIDine HCL 0.1 mg PO HS 09/09/20 09/09/20 rOPINIRole HCL [Requip] 0.25 mg PO HS PRN 09/09/20 09/09/20 Previous Rx's Medication Instructions Recorded Nicotine 14Mg/24Hr Patch [Habitrol] 1 patch TRANSDERM DAILY 14 Days 09/12/20 patch QUEtiapine [SEROquel] 50 mg PO HS 30 Days tab 09/12/20 Ketorolac [Toradol] 10 mg PO TID #30 tab 09/30/22 Lidocaine 5% Patch [Lidoderm] 1 patch TOPICAL DAILY #14 patch 09/30/22 predniSONE 50 mg PO DAILY #5 tab 01/02/23 Allergies Allergy/AdvReac Type Severity Reaction Status Date / Time amoxicillin Allergy Anaphylaxis Verified 01/02/23 14:00 bee pollen Allergy Anaphylaxis Verified 01/02/23 14:00 Penicillins Allergy Anaphylaxis Verified 01/02/23 14:00 acetaminophen [From [place]] AdvReac Nausea & Verified 01/02/23 14:00 Vomiting hydrocodone [From [place]] AdvReac Nausea & Verified 01/02/23 14:00 Vomiting Review of Systems ROS Statement: Those systems with pertinent positive or pertinent negative responses have been documented in the HPI. ROS Other: All systems not noted in ROS Statement are negative. Past Medical History Past Medical History: CVA/TIA Additional Past Medical History / Comment(s): anxiety, parkinson History of Any Multi-Drug Resistant Organisms: None Reported Past Surgical History: Orthopedic Surgery Additional Past Surgical History / Comment(s): THUMB Past Anesthesia/Blood Transfusion Reactions: No Reported Reaction Past Psychological History: Anxiety, Depression, PTSD Smoking Status: Current every day smoker Past Alcohol Use History: Occasional Past Drug Use History: None Reported - Past Family History Mother Family Medical History: Thyroid Disorder Father Family Medical History: Seizure Disorder Additional Family Medical History / Comment(s): Brain Tumor. General Exam Limitations: no limitations General appearance: alert, in no apparent distress Head exam: Present: atraumatic, normocephalic, normal inspection Extremities exam: Present: tenderness, normal capillary refill, other (Normal sensation in all fingers, radial pulses 2+). Absent: full ROM (Decreased due to pain) Neurological exam: Present: alert, oriented X3 Psychiatric exam: Present: normal affect, normal mood Skin exam: Present: warm, dry, normal color, abrasion. Absent: intact, rash Course Vital Signs 04/09/23 04/09/23 17:10 18:54 Temperature 97.9 F 98 F Pulse Rate 97 89 Respiratory 20 20 Rate Blood Pressure 135/85 130/85 O2 Sat by Pulse 95 96 Oximetry Medical Decision Making - Medical Decision Making Was pt. sent in by a medical professional or institution (, PA, [facility], urgent care, hospital, or group home...) When possible be specific @ -No Did you speak to anyone other than the patient for history (EMS, parent, family, police, friend...)? What history was obtained from this source @ -No Did you review nursing and triage notes (agree or disagree)? Why? @ -I reviewed and agree with nursing and triage notes Were old charts reviewed (outside hosp., previous admission, EMS record, old EKG, old radiological studies, urgent care reports/EKG's, group home records)? Report findings @ -No old charts were reviewed Differential Diagnosis (chest pain, altered mental status, abdominal pain women, abdominal pain men, vaginal bleeding, weakness, fever, dyspnea, syncope, headache, dizziness, GI bleed, back pain, seizure, CVA, palpatations, mental health, musculoskeletal)? @ -Differential Musculoskeletal Muscular strain, contusion, ligament sprain, fracture, arthritis, septic arthritis, bursitis, cellulitis, muscle spasm, nerve compression, DVT, arterial occlusion, herpes zoster, electrolyte abnormality, tumor.... This is not meant to be in all inclusive list EKG interpreted by me (3pts min.). @ -none X-rays interpreted by me (1pt min.). @ -X-ray right hand shows no evidence of acute fracture CT interpreted by me (1pt min.). @ -None done U/S interpreted by me (1pt. min.). @ -None done What testing was considered but not performed or refused? (CT, X-rays, U/S, labs)? Why? @ -None What meds were considered but not given or refused? Why? @ -None Did you discuss the management of the patient with other professionals (professionals i.e. , PA, [facility], lab, RT, psych nurse, sexual assault social worker, orthotist or prosthetist, teacher, assurance officer, caser in)? Give summary @ -No Was smoking cessation discussed for >3mins.? @ -No Was critical care preformed (if so, how long)? @ -No Were there social determinants of health that impacted care today? How? (Homelessness, low income, unemployed, alcoholism, drug addiction, transportation, low edu. Level, literacy, decrease access to med. care, retirement, rehab)? @ -No Was there de-escalation of care discussed even if they declined (Discuss DNR or withdrawal of care, Hospice)? DNR status @ -No What co-morbidities impacted this encounter? (DM, HTN, Smoking, COPD, CAD, Cancer, CVA, ARF, Chemo, Hep., AIDS, mental health diagnosis, sleep apnea, morbid obesity)? @ -None Was patient admitted / discharged? Hospital course, mention meds given and route, prescriptions, significant lab abnormalities, going to OR and other pertinent info. @ -Discharged. Patient presented to the emergency department chief complaint of right hand injury. On examination, there is mild swelling to the second through fourth digits of the right hand, neurovascularly intact,cap refill less than 2 seconds. X-rays obtained show no evidence of acute fracture, no foreign body. Patient has a couple abrasions to his hand. He is up-to-date on tetanus vaccination. Patient was placed in a temporary splint. Advised to rest, ice, elevate. Patient is understanding and agreeable with discharge plan. Patient stable at time of discharge. Case discussed with Dr. Muñoz who also evaluated the patient. Undiagnosed new problem with uncertain prognosis? @ -No Drug Therapy requiring intensive monitoring for toxicity (Heparin, Nitro, Insulin, Cardizem)? @ -No Were any procedures done? @ -No Diagnosis/symptom? @ -Hand contusion Acute, or Chronic, or Acute on Chronic? @ -Acute Uncomplicated (without systemic symptoms) or Complicated (systemic symptoms)? @ -Uncomplicated Side effects of treatment? @ -No Exacerbation, Progression, or Severe Exacerbation? @ -No Poses a threat to life or bodily function? How? (Chest pain, USA, CT, pneumonia, PE, COPD, DKA, ARF, appy, cholecystitis, CVA, Diverticulitis, Homicidal, Suicidal, threat to staff... and all critical care pts) @ -No Disposition Clinical Impression: Finger contusion Disposition: HOME SELF-CARE Condition: Stable Instructions (If sedation given, give patient instructions): Hand Sprain (ED) Additional Instructions: Please follow up with your primary care provider. Return to the emergency department for new or worsening symptoms. Is patient prescribed a controlled substance at d/c from ED?: No Referrals: None,Stated [Primary Care Provider] - 1-2 days
[2023-04-09] MEDS ORDERED: IBUPROFEN 600 MG TAB PO STA (18:24)
[2023-04-09 19:18] VITALS: BP 130/85; PULSE 89; TEMP 98
== END 2023-04-09 18:55 | disposition home or self-care (01) ==
LOC: EC 16:50
DX: S60.00XA Contusion of unspecified finger without damage to nail, initial encounter (principal); F17.200 Nicotine dependence, unspecified, uncomplicated; Z88.0 Allergy status to penicillin; Z91.030 Bee allergy status; Z88.6 Allergy status to analgesic agent; Z88.8 Allergy status to other drugs, medicaments and biological substances; Z86.59 Personal history of other mental and behavioral disorders; W23.0XXA Caught, crushed, jammed, or pinched between moving objects, initial encounter
CPT/HCPCS: 99283

== ENCOUNTER 2023-07-05 13:25 | Inpatient (IN) | payer OTHER ==
--- NOTE | 2023-07-05 13:34 | ED ---
Nausea/Vomiting/Diarrhea HPI - General Chief complaint: Nausea/Vomiting/Diarrhea Stated complaint: vomiting,chills Time Seen by Provider: 07/05/23 13:32 Source: patient, RN notes reviewed Mode of arrival: ambulatory Limitations: no limitations - History of Present Illness Initial comments: This is a 43-year-old male who presents to the emergency department for nausea and vomiting. States that it started around 8 AM. Reports a large amount of pain in his upper abdomen and back in association with the nausea and vomiting. States that he is unable to keep anything down. He has associated diarrhea. Feels like he has the chills but has not measured any fevers. Denies any upper respiratory symptoms. MD complaint: nausea, vomiting, diarrhea, abdominal pain - Related Data Home Medications Medication Instructions Recorded Confirmed Ibuprofen [Motrin Ib] 200 - 600 mg PO Q8H PRN 07/05/23 07/05/23 Allergies Allergy/AdvReac Type Severity Reaction Status Date / Time amoxicillin Allergy Anaphylaxis Verified 07/05/23 16:12 bee pollen Allergy Anaphylaxis Verified 07/05/23 16:12 Penicillins Allergy Anaphylaxis Verified 07/05/23 16:12 acetaminophen [From [facility]] AdvReac Nausea & Verified 07/05/23 16:12 Vomiting hydrocodone [From [facility]] AdvReac Nausea & Verified 07/05/23 16:12 Vomiting Review of Systems ROS Statement: Those systems with pertinent positive or pertinent negative responses have been documented in the HPI. ROS Other: All systems not noted in ROS Statement are negative. Past Medical History Past Medical History: CVA/TIA Additional Past Medical History / Comment(s): anxiety, parkinson History of Any Multi-Drug Resistant Organisms: None Reported Past Surgical History: Orthopedic Surgery Additional Past Surgical History / Comment(s): THUMB Past Anesthesia/Blood Transfusion Reactions: No Reported Reaction Past Psychological History: Anxiety, Depression, PTSD Smoking Status: Current every day smoker Past Alcohol Use History: Occasional Past Drug Use History: None Reported - Past Family History Mother Family Medical History: Thyroid Disorder Father Family Medical History: Seizure Disorder Additional Family Medical History / Comment(s): Brain Tumor. General Exam Limitations: no limitations General appearance: alert, in no apparent distress Head exam: Present: atraumatic, normocephalic, normal inspection Respiratory exam: Present: normal lung sounds bilaterally. Absent: respiratory distress, wheezes, rales, rhonchi, stridor Cardiovascular Exam: Present: regular rate, normal rhythm, normal heart sounds. Absent: systolic murmur, diastolic murmur, rubs, gallop, clicks GI/Abdominal exam: Present: soft, tenderness (Epigastric), normal bowel sounds. Absent: distended, guarding, rebound, rigid Neurological exam: Present: alert, oriented X3, CN II-XII intact Psychiatric exam: Present: normal affect, normal mood Skin exam: Present: warm, dry, intact, normal color. Absent: rash Course Vital Signs 07/05/23 07/05/23 07/05/23 13:30 16:22 16:58 Temperature 98.2 F 98.7 F Pulse Rate 78 54 L Respiratory 16 16 Rate Blood Pressure 147/101 163/112 156/101 O2 Sat by Pulse 97 99 Oximetry 07/05/23 18:07 Temperature Pulse Rate 61 Respiratory 16 Rate Blood Pressure 148/108 O2 Sat by Pulse 98 Oximetry Medical Decision Making - Medical Decision Making This is a 43 year old male who presents to the emergency department for abdominal pain, nausea, and vomiting. Was pt. sent in by a medical professional or institution? @ -No Did you speak to anyone other than the patient for history? @ -No Did you review nursing and triage notes? @ -Yes, and I agree, it is accurate with regards to the patient's symptoms. Were old charts reviewed? @ -No Differential Diagnosis? @ -Differential Abdominal Pain Men: Appendicitis, cholecystitis, diverticulosis, ischemic bowel, pancreatitis, hepatitis, UTI, gastroenteritis, AAA, incarcerated hernia, bowel obstruction, constipation, inflammatory bowel, hepatitis, peptic ulcer disease, splenic infa rction, perforated viscus, testicular torsion, this is not meant to be an all- inclusive list EKG interpreted by me (3pts min.)? @ -EKG interpreted by me demonstrating the following: Sinus rhythm. Ventricular rate 65 bpm, FL interval 142 ms, QRS duration 101 ms, QTc 453 ms. X-rays interpreted by me (1pt min.)? @ -Not obtained CT interpreted by me (1pt min.)? @ -Not obtained U/S interpreted by me (1pt. min.)? @ -Gallbladder ultrasound obtained. My interpretation identifies no evidence of cholelithiasis. What testing was considered but not performed? (CT, X-rays, U/S, labs)? Why? @ -None What meds were considered but not given? Why? @ -None Did you discuss the management of the patient with other professionals? @ -Yes, Dr. Brannon, who accepts the patient for admission. Did you reconcile home meds? @ -No Was smoking cessation discussed for >3mins.? @ -I discussed smoking cessation for greater than 3 minutes. The risk of smoking were discussed with the patient including but not limited to risks of cancer, stroke, coronary artery disease and COPD. Also discussed with patient were multiple methods of quitting smoking. Lastly we discussed the financial cost of smoking. Was critical care preformed (if so, how long)? @ -No Were there social determinants of health that impacted care today? How? (Homelessness, low income, unemployed, alcoholism, drug addiction, transportation, low edu. Level, literacy, decrease access to med. care, usp, rehab)? @ -Alcohol abuse, potentially causing the pancreatitis, which is his reason for the visit today. Was there de-escalation of care discussed even if they declined? (Discuss DNR or withdrawal of care, Hospice)? @ -No What co-morbidities impacted this encounter? (DM, HTN, Smoking, COPD, CAD, Cancer, CVA, Hep., AIDS, mental health diagnosis, sleep apnea, morbid obesity)? @ -Alcohol abuse, smoking Was patient admitted / discharged? @ -Admitted. Lab work obtained demonstrating an elevated lipase of 1070 and an elevated lactic acid of 2.5. Magnesium also low at 1.1. Causes of pancreatitis reviewed with the patient, and he does admit to daily alcohol use. States that he typically has several shots of liquor a day. Gallbladder ultrasound obtained demonstrating no evidence of cholelithiasis or other acute process. 4 g of magnesium sulfate administered for the hypomagnesemia. Patient was also given a liter bolus of IV fluids along with Zofran, Toradol, and Dilaudid for symptomatic management. Patient admitted to medicine for pancreatitis and hypomagnesemia. Undiagnosed new problem with uncertain prognosis? @ -None Drug Therapy requiring intensive monitoring for toxicity (Heparin, Nitro, Insulin, Cardizem)? @ -None Were any procedures done? @ -None Diagnosis/symptom? @ -Pancreatitis, hypomagnesemia Acute, or Chronic, or Acute on Chronic? @ -Acute Uncomplicated (without systemic symptoms) or Complicated (systemic symptoms)? @ -Uncomplicated Side effects of treatment? @ -None Exacerbation, Progression, or Severe Exacerbation] @ -Not applicable Poses a threat to life or bodily function? @ -No This case was discussed in detail with the attending ED physician, Dr. Mcmillan. Presentation, findings, and treatment plan discussed in detail as well. - Lab Data Result diagrams: 07/05/23 14:09 07/05/23 14:09 Lab Results 07/05/23 07/05/23 07/05/23 Range/Units 14:09 14:09 14:09 WBC 3.7 L (3.8-10.6) k/uL RBC 4.16 L (4.30-5.90) m/uL Hgb 14.2 (13.0-17.5) gm/dL Hct 41.6 (39.0-53.0) % MCV 99.9 (80.0-100.0) fL MCH 34.0 (25.0-35.0) pg MCHC 34.1 (31.0-37.0) g/dL RDW 14.5 (11.5-15.5) % Plt Count 115 L (150-450) k/uL MPV 8.9 Neutrophils % 81 % Lymphocytes % 12 % Monocytes % 5 % Eosinophils % 1 % Basophils % 1 % Neutrophils # 3.0 (1.3-7.7) k/uL Lymphocytes # 0.5 L (1.0-4.8) k/uL Monocytes # 0.2 (0-1.0) k/uL Eosinophils # 0.0 (0-0.7) k/uL Basophils # 0.0 (0-0.2) k/uL Macrocytosis Slight Sodium 142 (137-145) mmol/L Potassium 3.7 (3.5-5.1) mmol/L Chloride 100 (98-107) mmol/L Carbon Dioxide 29 (22-30) mmol/L Anion Gap 13 mmol/L BUN 15 (9-20) mg/dL Creatinine 0.58 L (0.66-1.25) mg/dL Est GFR (CKD-EPI)AfAm >90 (>60 ml/min/1.73 sqM) Est GFR (CKD-EPI)NonAf >90 (>60 ml/min/1.73 sqM) Glucose 146 H (74-99) mg/dL Lactic Ac Sepsis Rflx Plasma Lactic Acid Mark 2.5 H* (0.7-2.0) mmol/L Calcium 11.2 H (8.4-10.2) mg/dL Phosphorus 4.6 H (2.5-4.5) mg/dL Magnesium 1.1 L (1.6-2.3) mg/dL Total Bilirubin 1.0 (0.2-1.3) mg/dL AST 228 H (17-59) U/L ALT 73 H (4-49) U/L Alkaline Phosphatase 85 (38-126) U/L Total Protein 8.2 (6.3-8.2) g/dL Albumin 5.1 H (3.5-5.0) g/dL Amylase 82 (30-110) U/L Lipase 1070 H (23-300) U/L Serum Alcohol mg/dL Influenza Type A (PCR) (Not Detectd) Influenza Type B (PCR) (Not Detectd) RSV (PCR) (Not Detectd) SARS-CoV-2 (PCR) (Not Detectd) 07/05/23 07/05/23 07/05/23 Range/Units 14:09 14:35 16:54 WBC (3.8-10.6) k/uL RBC (4.30-5.90) m/uL Hgb (13.0-17.5) gm/dL Hct (39.0-53.0) % MCV (80.0-100.0) fL MCH (25.0-35.0) pg MCHC (31.0-37.0) g/dL RDW (11.5-15.5) % Plt Count (150-450) k/uL MPV Neutrophils % % Lymphocytes % % Monocytes % % Eosinophils % % Basophils % % Neutrophils # (1.3-7.7) k/uL Lymphocytes # (1.0-4.8) k/uL Monocytes # (0-1.0) k/uL Eosinophils # (0-0.7) k/uL Basophils # (0-0.2) k/uL Macrocytosis Sodium (137-145) mmol/L Potassium (3.5-5.1) mmol/L Chloride (98-107) mmol/L Carbon Dioxide (22-30) mmol/L Anion Gap mmol/L BUN (9-20) mg/dL Creatinine (0.66-1.25) mg/dL Est GFR (CKD-EPI)AfAm (>60 ml/min/1.73 sqM) Est GFR (CKD-EPI)NonAf (>60 ml/min/1.73 sqM) Glucose (74-99) mg/dL Lactic Ac Sepsis Rflx Y Plasma Lactic Acid Mark (0.7-2.0) mmol/L Calcium (8.4-10.2) mg/dL Phosphorus (2.5-4.5) mg/dL Magnesium (1.6-2.3) mg/dL Total Bilirubin (0.2-1.3) mg/dL AST (17-59) U/L ALT (4-49) U/L Alkaline Phosphatase (38-126) U/L Total Protein (6.3-8.2) g/dL Albumin (3.5-5.0) g/dL Amylase (30-110) U/L Lipase (23-300) U/L Serum Alcohol <10 mg/dL Influenza Type A (PCR) Not Detected (Not Detectd) Influenza Type B (PCR) Not Detected (Not Detectd) RSV (PCR) Not Detected (Not Detectd) SARS-CoV-2 (PCR) Not Detected (Not Detectd) - Radiology Data Radiology results: report reviewed, image reviewed Disposition Clinical Impression: Pancreatitis, Hypomagnesemia Disposition: ADMITTED IP TO THIS HOSP
[2023-07-05 14:18] LABS: Basophils % (A) 1 %; Eosinophils % (A) 1 %; HCT 41.6 % (39.0-53.0); HGB 14.2 gm/dL (13.0-17.5); Lymphocytes # (A) 0.5 k/uL (1.0-4.8); Lymphocytes % (A) 12 %; MCHC 34.1 g/dL (31.0-37.0); MCV 99.9 fL (80.0-100.0); Macrocytosis Slight; Mean Platelet Volume 8.9; Monocytes # (A) 0.2 k/uL (0-1.0); Monocytes % (A) 5 %; Neutrophils % (A) 81 %; Platelet Count 115 k/uL (150-450); RBC 4.16 m/uL (4.30-5.90); RDW 14.5 % (11.5-15.5); WBC 3.7 k/uL (3.8-10.6)
[2023-07-05 14:30] LABS: ALT 73 U/L (4-49); AST 228 U/L (17-59); African American GFR (CKD) >90 (>60 ml/min/1.73 sqM); Albumin 5.1 g/dL (3.5-5.0); Alkaline Phosphatase 85 U/L (38-126); Amylase 82 U/L (30-110); Anion Gap 13 mmol/L; Blood Urea Nitrogen 15 mg/dL (9-20); Calcium 11.2 mg/dL (8.4-10.2); Carbon Dioxide 29 mmol/L (22-30); Chloride 100 mmol/L (98-107); Glucose 146 mg/dL (74-99); Lipase 1070 U/L (23-300); Non-African American GFR(CKD) >90 (>60 ml/min/1.73 sqM); Potassium 3.7 mmol/L (3.5-5.1); Sodium 142 mmol/L (137-145); Total Protein 8.2 g/dL (6.3-8.2)
--- NOTE | 2023-07-05 15:13 | US ---
EXAMINATION TYPE: US gallbladder DATE OF EXAM: 07/05/2023 COMPARISON: NONE CLINICAL INDICATION: Male, 43 years old with history of Epigastric pain, pancreatitis; TECHNIQUE: Multiple sonographic images of the right upper quadrant are obtained. FINDINGS: EXAM MEASUREMENTS: Liver Length: 18.2 cm Gallbladder Wall: 0.2 cm CBD: 0.3 cm Right Kidney: 10.5 x 4.0 x 5.0 cm Pancreas: limited by overlying midline bowel gas Liver: enlarged Gallbladder: wnl Evidence for sonographic Palma's sign: no CBD: wnl Right Kidney: wnl IMPRESSION: Mild hepatomegaly. Otherwise unremarkable study.
[2023-07-05 15:57] LABS: Magnesium 1.1 mg/dL (1.6-2.3); Phosphorus 4.6 mg/dL (2.5-4.5)
[2023-07-05] MEDS: ONDANSETRON ODT 4 MG TAB PO STA (16:41)
[2023-07-05] MEDS: KETOROLAC 15 MG/ML 1 ML VIAL IVP STA (16:43)
[2023-07-05] MEDS: ONDANSETRON 4 MG/2 ML VIAL IVP STA (16:43)
[2023-07-05] MEDS: HYDROmorphone 0.5 MG/0.5 ML SYRINGE IVP STA (16:44)
[2023-07-05] MEDS: MAGNESIUM SULFATE-D5W PMX 1 GM in DEXTROSE/WATER 1 100ML.BAG IVPB SCH (16:44)
[2023-07-05] MEDS: SODIUM CHLORIDE 0.9% 1,000 ML IV STA (16:45)
[2023-07-05] MEDS ORDERED: HYDROcodone/APAP 5-325MG 1 EACH TAB PO PRN (17:33)
[2023-07-05] MEDS ORDERED: NALOXONE 0.4 MG/ML 1 ML VIAL IV PRN (17:33)
[2023-07-05] MEDS ORDERED: ONDANSETRON 4 MG/2 ML VIAL IVP PRN (17:33)
[2023-07-05] MEDS ORDERED: ACETAMINOPHEN TAB 325 MG TAB PO PRN (17:33)
[2023-07-05] MEDS ORDERED: KETOROLAC 15 MG/ML 1 ML VIAL IVP PRN (17:34)
[2023-07-05] MEDS: SODIUM CHLORIDE 0.9% 1,000 ML IV SCH (18:27)
[2023-07-05] MEDS: HYDROmorphone 0.5 MG/0.5 ML SYRINGE IVP PRN (20:03)
[2023-07-05] MEDS: cloNIDine HCL 0.1 MG TAB PO STA (22:28)
[2023-07-05] MEDS: SODIUM CHLORIDE 0.9% 1,000 ML IV ONE (23:00)
[2023-07-05] MEDS ORDERED: LORazepam 0.5 MG TAB PO PRN (23:13)
[2023-07-05] MEDS ORDERED: LORazepam 2 MG/ML INJ IV PRN (23:13)
[2023-07-05] MEDS ORDERED: HYDROmorphone 0.5 MG/0.5 ML SYRINGE IVP PRN (23:13)
[2023-07-05] MEDS ORDERED: LORazepam 1 MG TAB PO PRN (23:13)
--- NOTE | 2023-07-05 23:52 | P.HPIM ---
History of Present Illness H&P Date: 07/05/23 Chief Complaint: abd pain 43-year-old male with alcohol dependence Parkinson disease Patient coming in for abdominal pain that started last night around 10 PM he described it as sharp epigastric pain radiating to his back associated with repeated vomiting brownish in color denies any GI bleeding. This morning when he woke up he continued to have pain started having diarrhea this morning. Denies any fevers or chills denies any recent travel or unsanitary food. Denies any recent upper respiratory infection symptoms denies any history of pancreatitis gallstones. Patient does admit to daily drinking he drinks about 6-8 shots of 99 proof alcohol a day his last drink was this morning as he was trying to ease the pain. Patient denies any street drugs he does admit to tobacco smoking Otherwise denies any urinary changes denies any history of gallstones or kidney stones denies any coughing shortness of breath or chest pain review of systems Pertinent positives as noted in HPI. All other systems were reviewed and are negative on exam Constitutional: No acute distress, conversant, pleasant Eyes: Anicteric sclerae, moist conjunctiva, Pupils equal round reactive to light ENMT: NC/AT Oropharynx clear, no erythema, or exudates Neck: Supple, no masses, or JVD No carotid bruits No thyromegaly Lungs: Clear to auscultation Clear to percussion Normal respiratory effort, no accessory muscle use Cardiovascular: Heart regular in rate and rhythm, No murmurs, gallops, or rubs No peripheral edema Abdominal: Soft Diffuse tenderness to palpation voluntary guarding Normoactive bowel sounds Extremities: No digital cyanosis No clubbing Pedal pulses intact and symmetrical Radial pulses intact and symmetrical No calf tenderness Psychiatric: Alert and oriented to person, place and time Appropriate affect fair judgement Neuro Muscles Strength 5/5 in all 4 extremities Sensation to light touch grossly present throughout Cranial nerves II-XII grossly intact Past Medical History Past Medical History: CVA/TIA Additional Past Medical History / Comment(s): anxiety, parkinson History of Any Multi-Drug Resistant Organisms: None Reported Past Surgical History: Orthopedic Surgery Additional Past Surgical History / Comment(s): THUMB Past Anesthesia/Blood Transfusion Reactions: No Reported Reaction Past Psychological History: Anxiety, Depression, PTSD Smoking Status: Current every day smoker Past Alcohol Use History: Occasional Past Drug Use History: None Reported - Past Family History Mother Family Medical History: Thyroid Disorder Father Family Medical History: Seizure Disorder Additional Family Medical History / Comment(s): Brain Tumor. Medications and Allergies Home Medications Medication Instructions Recorded Confirmed Type Ibuprofen [Motrin Ib] 200 - 600 mg PO Q8H PRN 07/05/23 07/05/23 History Allergies Allergy/AdvReac Type Severity Reaction Status Date / Time amoxicillin Allergy Anaphylaxis Verified 07/05/23 16:12 bee pollen Allergy Anaphylaxis Verified 07/05/23 16:12 Penicillins Allergy Anaphylaxis Verified 07/05/23 16:12 acetaminophen [From [place]] AdvReac Nausea & Verified 07/05/23 16:12 Vomiting hydrocodone [From [place]] AdvReac Nausea & Verified 07/05/23 16:12 Vomiting Physical Exam Vitals: Vital Signs Temp Pulse Resp BP Pulse Ox 07/05/23 21:13 98.5 F 72 17 127/93 95 07/05/23 20:30 64 14 152/101 96 07/05/23 19:30 63 18 153/141 97 07/05/23 18:07 61 16 148/108 98 07/05/23 16:58 156/101 07/05/23 16:22 98.7 F 54 L 16 163/112 99 07/05/23 13:30 98.2 F 78 16 147/101 97 Intake and Output 07/05/23 07/05/23 07/05/23 06:59 14:59 22:59 Other: Weight 65.771 kg Results CBC & Chem 7: 07/05/23 14:09 07/05/23 14:09 Labs: Abnormal Lab Results - Last 24 Hours (Table) 07/05/23 07/05/23 07/05/23 Range/Units 14:09 14:09 14:09 WBC 3.7 L (3.8-10.6) k/uL RBC 4.16 L (4.30-5.90) m/uL Plt Count 115 L (150-450) k/uL Lymphocytes # 0.5 L (1.0-4.8) k/uL Creatinine 0.58 L (0.66-1.25) mg/dL Glucose 146 H (74-99) mg/dL Plasma Lactic Acid Mark 2.5 H* (0.7-2.0) mmol/L Calcium 11.2 H (8.4-10.2) mg/dL Phosphorus 4.6 H (2.5-4.5) mg/dL Magnesium 1.1 L (1.6-2.3) mg/dL AST 228 H (17-59) U/L ALT 73 H (4-49) U/L Albumin 5.1 H (3.5-5.0) g/dL Lipase 1070 H (23-300) U/L Assessment and Plan Assessment: 43-year-old male with history of Parkinson disease alcohol dependence coming in for 1 day history of epigastric abdominal pain I discussed the case with ED doctor and accepted the admission for acute pancreatitis, rule out GI bleeding and gastritis with anticipated length of stay more than 2 midnights Acute pancreatitis Patient reports brownish color vomiting started this morning denies any rectal bleeding or melena Strict n.p.o. 2 L boluses normal saline Continue with lactated Ringer 150 cc/h Pain control with Dilaudid 0.5 mg IV push every 2 hours as needed Zofran 4 mg IV push every 8 hours as needed for nausea vomiting Protonix 80 mg IV push once then continue with 40 mg IV push twice daily Monitor hemoglobin GI consultation Lipase 1070 Hemoglobin currently unremarkable 14.2 continue to monitor Alcohol dependence Monitor for alcohol withdrawal symptoms Benzos per CIWA scale Thiamine daily Patient counseled to quit heavy drinking Elevated liver enzymes AST 228 ALT 37 alkaline phosphatase unremarkable 85 this is a pattern of alcohol transaminitis Total bili unremarkable 1.0 Continue to follow-up liver enzymes Hypercalcemia Calcium level 11.2, follow-up level in the morning if this does not normalize this could be another reason for his acute pancreatitis episode, then consider hypercalcemia workup with PTH and vitamin D hydroxy levels and phosphorus levels. Continue with IV fluid hydration for now this is suspected to be secondary to dehydration Hypomagnesemia Replace IV follow-up levels Renal function otherwise unremarkable sodium 142 potassium 3.7 BUN 15 creatinine 0.5 Full code DVT prophylaxis mechanical due to suspected GI bleed
[2023-07-06] MEDS ORDERED: HEPARIN SODIUM,PORCINE 5,000 UNIT/ML 1 ML VIAL SQ SCH
[2023-07-06] MEDS: LACTATED RINGERS 1,000 ML IV SCH (00:13)
[2023-07-06] MEDS: PANTOPRAZOLE 40 MG/10 ML VIAL IVP ONE (00:14)
[2023-07-06] MEDS: MAGNESIUM SULFATE-D5W PMX 1 GM in DEXTROSE/WATER 1 100ML.BAG IVPB SCH (01:22)
[2023-07-06] MEDS: NICOTINE 21MG/24HR PATCH TRANSDERM SCH (08:27)
[2023-07-06] MEDS: THIAMINE 100 MG TAB PO SCH (08:27)
[2023-07-06] MEDS: PANTOPRAZOLE 40 MG/10 ML VIAL IVP SCH (08:27)
[2023-07-06 08:48] LABS: ALT 51 U/L (10-49); AST 118 U/L (14-35); Alkaline Phosphatase 78 U/L (41-126); BUN/Creat Ratio 12.17 Ratio (12.00-20.00); Blood Urea Nitrogen 7.3 mg/dL (9.0-27.0); Calcium 8.7 mg/dL (8.7-10.3); Carbon Dioxide 26.7 mmol/L (21.6-31.8); Chloride 100 mmol/L (96-109); Globulin 2.1 g/dL (1.6-3.3); Glucose 89 mg/dL (70-110); Magnesium 2.6 mg/dL (1.5-2.4); Sodium 137 mmol/L (135-145); Total Bilirubin 0.9 mg/dL (0.3-1.2); Total Protein 6.1 g/dL (6.2-8.2)
[2023-07-06 09:39] LABS: Basophils # (A) 0.01 X 10*3/uL (0.00-0.10); Basophils % (A) 0.2 %; Eosinophils # (A) 0.04 X 10*3/uL (0.04-0.35); HCT 36.1 % (39.6-50.0); HGB 12.5 g/dL (13.0-17.0); Lymphocytes # (A) 0.69 X 10*3/uL (0.90-5.00); MCH 33.9 pg (27.0-32.0); MCHC 34.6 g/dL (32.0-37.0); MCV 97.8 FL (80.0-97.0); Mean Platelet Volume 11.9 FL (9.5-12.2); Monocytes # (A) 0.32 X 10*3/uL (0.20-1.00); Monocytes % (A) 7.9 %; NRBC Per 100 WBC 0 X 10*3/uL (0.00-0.01); Neutrophils # (A) 2.98 X 10*3/uL (1.80-7.70); Neutrophils % (A) 73.7 %; Platelet Count 95 X 10*3/uL (140-440); RBC 3.69 X 10*6/uL (4.40-5.60); RDW 14.2 % (11.5-14.5); Stomatocytes 2+; WBC 4.05 X 10*3/uL (4.50-10.00)
[2023-07-06] MEDS: LORazepam 2 MG/ML INJ IV PRN (10:28)
[2023-07-06] MEDS ORDERED: NICOTINE GUM (POLACRILEX) 2 MG GUM BUCCAL PRN (11:49)
--- NOTE | 2023-07-06 11:50 | P.PN ---
Subjective Progress Note Date: 07/06/23 Hospital course: Patient is a very pleasant 43-year-old male with a past medical history of anxiety, depression, PTSD, Parkinson's disease, nicotine dependence, and alcohol abuse. He presented to the emergency department on 07/05/2023 secondary to complaints of abdominal pain to epigastric region accompanied by nausea, vomiting, and diarrhea. Upon arrival to the hospital, patient underwent full evaluation. Vital signs in the emergency department show blood pressure 147/101, heart rate 78, respiratory rate 16, temp 98.2 F, and SpO2 of 97% on room air. EKG was completed showing normal sinus rhythm at 65 bpm with T wave inversion in leads aVL. Gallbladder ultrasound was completed showing hepatomegaly otherwise negative for acute process. Labs were completed and reviewed. CBC showing bicytopenia with WBC count of 3.7 and platelet count of 115. BMP was unremarkable. Lactic acid was elevated at 2.5. Calcium also slightly elevated at 11.2. Phosphorus elevated at 4.6 and magnesium was low at 1.1. Liver profile showing elevated AST of 228 and ALT of 73. Lipase elevated at 1070. Serum alcohol was less than 10. Influenza A, influenza B, RSV, and COVID PCR were negative. Patient was admitted under our services. Physical exam: Vital signs reviewed and stable. General: Nontoxic, no distress and appears stated age. Derm: Skin warm and dry, normal coloration for ethnicity. Head: Atraumatic, normocephalic and symmetric. Eyes: EOMs intact, no lid lag, and anicteric sclera Mouth: no lip lesions, mucus membranes moist Cardiovascular: regular rate and rhythm with normal S1S2, no murmur, positive posterior tibial pulses bilaterally, and cap refill < 2 seconds. Lungs: Respirations even, regular, and unlabored on room air. Lungs CTA bilaterally, no rhonchi, no rales, no wheezing, and no accessory muscle usage. Abdominal: soft, nontender to palpation, no guarding, no appreciable organome sedrick Ext: ROM intact. No gross muscle atrophy, no edema, no contractures. Neuro: Speech clear, face symmetrical and CN II-XII grossly intact with no noted focal neuro deficits. Mild resting tremors noted Psych: Alert and oriented to person, place, time, and situation. Appropriate and pleasant affect. Assessment and Plan of Care: Acute alcoholic pancreatitis Alcohol abuse Elevated liver enzymes, likely secondary to longstanding daily alcohol abuse Pancytopenia with the presence of stomatocytes, likely secondary to alcohol abuse Nausea and vomiting with reported episode of coffee ground emesis Hypokalemia Hypomagnesemia, resolved Lactic acidosis, resolved with IV fluid hydration -Continue monitoring of CIWA scores and patient to be medicated with Ativan 0.5 mg every 4 hours as needed for CIWA score of 4-5, Ativan 1 mg every 4 hours for CIWA score of 6-7, Ativan 2 mg every 3 hours CIWA score of 8-9, and Ativan 2 mg every 2 hours forr CIWA score of 10 or greater. -Continuous IV hydration with lactated Ringer's at 150 cc/h. -Clear liquid diet -GI prophylaxis with Protonix 40 mg IVP twice daily -General surgery consulted for evaluation and possible EGD secondary to reports of episode of coffee-ground emesis -Thiamine 100 mg daily -Multivitamin daily -Folate 1 mg daily -Seizure, fall, aspiration, and elopement precautions in place. -Continued close monitoring of electrolytes and replace as needed. Nicotine dependence -Recommend smoking cessation. Nicotine patch 21 mg daily. Data reviewed: Morning labs reviewed. CBC showing pancytopenia with WBC count of 4.05, hemoglobin 12.5, and platelet count of 95. Stomatocytes are present 2+. BMP showing hypokalemia with potassium of 3.0 otherwise normal findings. Orders placed for K-Dur 40 mEq p.o. x 1 dose. Magnesium 2.6. Liver profile showing elevated AST of 118 and ALT of 51. Vital signs reviewed. Blood pressure 121/82, heart rate 70, respiratory rate 15, temp 98.3 F, and SpO2 of 96% on room air. CODE STATUS: Full code DVT prophylaxis: SCDs Anticipated discharge date: Clinical course to determine Anticipated discharge place: Clinical course to determine Patient was seen independently by Nurse Pracitioner. This document was prepared using [employer] dictation software. Please allow for errors in spa assistant manager, while rare they do occur. Doug Tavares NP rendered care for this patient independently, reviewed the findings and plan as documented in the note above. I did not physically speak with or examine the patient on this date. Objective - Vital Signs Vital signs: Vital Signs Temp 98.3 F 07/06/23 08:00 Pulse 70 07/06/23 08:00 Resp 15 07/06/23 08:00 BP 121/82 07/06/23 08:00 Pulse Ox 96 07/06/23 08:00 FiO2 Intake & Output 07/05/23 07/06/23 07/06/23 18:59 06:59 18:59 Weight 65.771 kg 65.771 kg Other: Voiding Method Toilet # Voids 4 - Labs CBC & Chem 7: 07/06/23 04:47 07/06/23 04:47 Labs: Abnormal Lab Results - Last 24 Hours (Table) 07/05/23 07/05/23 07/05/23 Range/Units 14:09 14:09 14:09 WBC 3.7 L (3.8-10.6) k/uL RBC 4.16 L (4.30-5.90) m/uL Plt Count 115 L (150-450) k/uL Lymphocytes # 0.5 L (1.0-4.8) k/uL Creatinine 0.58 L (0.66-1.25) mg/dL Glucose 146 H (74-99) mg/dL Plasma Lactic Acid Mark 2.5 H* (0.7-2.0) mmol/L Calcium 11.2 H (8.4-10.2) mg/dL Phosphorus 4.6 H (2.5-4.5) mg/dL Magnesium 1.1 L (1.6-2.3) mg/dL AST 228 H (17-59) U/L ALT 73 H (4-49) U/L Albumin 5.1 H (3.5-5.0) g/dL Lipase 1070 H (23-300) U/L
--- NOTE | 2023-07-06 12:58 | P.GSCN ---
History of Present Illness Consult date: 07/06/23 History of present illness: CHIEF COMPLAINT: Nausea and vomiting HISTORY OF PRESENT ILLNESS: This is a 43-year-old male who presented to the hospital with complaints of nausea and vomiting that started around 8 AM yesterday. He is also reporting epigastric abdominal pain. He does not have a history of alcohol use. He also was diagnosed with pancreatitis. Consult was placed for possible EGD and coffee-ground emesis. Apparently the emesis had reported to be coffee-ground's in color. Patient reporting his emesis has been brown and milky. He reports never having had an EGD completed. He does report occasional Motrin use. PAST MEDICAL HISTORY: CVA, anxiety, depression, PTSD PAST SURGICAL HISTORY: See below MEDICATIONS: See below ALLERGIES: See below SOCIAL HISTORY: No illicit drug use. REVIEW OF SYSTEMS: CONSTITUTIONAL: Denies fever or chills. HEENT: Denies blurred vision, vision changes, or eye pain. Denies hemoptysis CARDIOVASCULAR: Denies chest pain or pressure. RESPIRATORY: No shortness of breath. GASTROINTESTINAL: See HPI for pertinent findings HEMATOLOGIC: Denies bleeding disorders. GENITOURINARY: Denies any blood in urine or increased urinary frequency. SKIN: Denies pruitis. Denies rash. PHYSICAL EXAM: VITAL SIGNS: Reviewed GENERAL: Well-developed in no acute distress. HEENT: No sclera icterus. Extraocular movements grossly intact. Moist buccal mucosa. Head is atraumatic, normocephalic. No nasal drainage. ABDOMEN: Soft. Nondistended. Epigastric tenderness NEUROLOGIC: Alert and oriented. Cranial nerves II through XII grossly intact. LABORATORY DATA: WBC 3.7 down to 4.05 Hgb 14.2 down to 12.5 platelets 95 sodium is 137 potassium 3.0 creatinine 0.6 Lactic acid 2.5 down to 1.1 Magnesium 2.6 Total bili 0.9 AST 118 ALT 51 Lipase 1070 IMAGING: Gallbladder ultrasound mild hepatomegaly. Gallbladder within normal limits . otherwise unremarkable study ASSESSMENT: 1. Epigastric abdominal pain 2. Coffee-ground emesis 3. Acute alcoholic pancreatitis PLAN: -Patient scheduled for EGD tomorrow with Dr. Garcia -N.p.o. after midnight -Continue IV Protonix -Continue to monitor for any signs or symptoms of bleeding -Continue to monitor hemoglobin -Avoid NSAIDs Physician Aircraft Engine Assembler note has been reviewed by physician. Signing provider agrees with the documented findings, assessment, and plan of care. Past Medical History Past Medical History: CVA/TIA Additional Past Medical History / Comment(s): anxiety, parkinson History of Any Multi-Drug Resistant Organisms: None Reported Past Surgical History: Orthopedic Surgery Additional Past Surgical History / Comment(s): THUMB Past Anesthesia/Blood Transfusion Reactions: No Reported Reaction Past Psychological History: Anxiety, Depression, PTSD Smoking Status: Current every day smoker Past Alcohol Use History: Occasional Past Drug Use History: None Reported - Past Family History Mother Family Medical History: Thyroid Disorder Father Family Medical History: Seizure Disorder Additional Family Medical History / Comment(s): Brain Tumor. Medications and Allergies Home Medications Medication Instructions Recorded Confirmed Type Ibuprofen [Motrin Ib] 200 - 600 mg PO Q8H PRN 07/05/23 07/05/23 History Allergies Allergy/AdvReac Type Severity Reaction Status Date / Time amoxicillin Allergy Anaphylaxis Verified 07/05/23 16:12 bee pollen Allergy Anaphylaxis Verified 07/05/23 16:12 Penicillins Allergy Anaphylaxis Verified 07/05/23 16:12 acetaminophen [From [place]] AdvReac Nausea & Verified 07/05/23 16:12 Vomiting hydrocodone [From [place]] AdvReac Nausea & Verified 07/05/23 16:12 Vomiting Surgical - Exam Vital Signs Temp Pulse Resp BP Pulse Ox 98.2 F 78 16 147/101 97 07/05/23 13:30 07/05/23 13:30 07/05/23 13:30 07/05/23 13:30 07/05/23 13:30 Results - Labs 07/06/23 04:47 07/06/23 04:47 Abnormal Lab Results - Last 24 Hours (Table) 07/05/23 07/05/23 07/05/23 Range/Units 14:09 14:09 14:09 WBC 3.7 L (3.8-10.6) k/uL RBC 4.16 L (4.30-5.90) m/uL Hgb (13.0-17.0) g/dL Hct (39.6-50.0) % MCV (80.0-97.0) FL MCH (27.0-32.0) pg Plt Count 115 L (150-450) k/uL Lymphocytes # 0.5 L (1.0-4.8) k/uL Stomatocytes Potassium (3.5-5.5) mmol/L BUN (9.0-27.0) mg/dL Creatinine 0.58 L (0.66-1.25) mg/dL Glucose 146 H (74-99) mg/dL Plasma Lactic Acid Mark 2.5 H* (0.7-2.0) mmol/L Calcium 11.2 H (8.4-10.2) mg/dL Phosphorus 4.6 H (2.5-4.5) mg/dL Magnesium 1.1 L (1.6-2.3) mg/dL AST 228 H (17-59) U/L ALT 73 H (4-49) U/L Total Protein (6.2-8.2) g/dL Albumin 5.1 H (3.5-5.0) g/dL Lipase 1070 H (23-300) U/L 07/06/23 07/06/23 Range/Units 04:47 04:47 WBC 4.05 L (3.8-10.6) k/uL RBC 3.69 L (4.30-5.90) m/uL Hgb 12.5 L (13.0-17.0) g/dL Hct 36.1 L (39.6-50.0) % MCV 97.8 H (80.0-97.0) FL MCH 33.9 H (27.0-32.0) pg Plt Count 95 L (150-450) k/uL Lymphocytes # 0.69 L (1.0-4.8) k/uL Stomatocytes 2+ A Potassium 3.0 L (3.5-5.5) mmol/L BUN 7.3 L (9.0-27.0) mg/dL Creatinine (0.66-1.25) mg/dL Glucose (74-99) mg/dL Plasma Lactic Acid Mark (0.7-2.0) mmol/L Calcium (8.4-10.2) mg/dL Phosphorus (2.5-4.5) mg/dL Magnesium 2.6 H (1.6-2.3) mg/dL AST 118 H (17-59) U/L ALT 51 H (4-49) U/L Total Protein 6.1 L (6.2-8.2) g/dL Albumin (3.5-5.0) g/dL Lipase (23-300) U/L Diabetes panel 07/05/23 07/06/23 Range/Units 14:09 04:47 Sodium 142 137 (137-145) mmol/L Potassium 3.7 3.0 L (3.5-5.1) mmol/L Chloride 100 100 (98-107) mmol/L Carbon Dioxide 29 26.7 (22-30) mmol/L BUN 15 7.3 L (9-20) mg/dL Creatinine 0.58 L 0.6 (0.66-1.25) mg/dL Glucose 146 H 89 (74-99) mg/dL Calcium 11.2 H 8.7 (8.4-10.2) mg/dL AST 228 H 118 H (17-59) U/L ALT 73 H 51 H (4-49) U/L Alkaline Phosphatase 85 78 (38-126) U/L Total Protein 8.2 6.1 L (6.3-8.2) g/dL Albumin 5.1 H 4.0 (3.5-5.0) g/dL Calcium panel 07/05/23 07/06/23 Range/Units 14:09 04:47 Calcium 11.2 H 8.7 (8.4-10.2) mg/dL Phosphorus 4.6 H (2.5-4.5) mg/dL Albumin 5.1 H 4.0 (3.5-5.0) g/dL Pituitary panel 07/05/23 07/06/23 Range/Units 14:09 04:47 Sodium 142 137 (137-145) mmol/L Potassium 3.7 3.0 L (3.5-5.1) mmol/L Chloride 100 100 (98-107) mmol/L Carbon Dioxide 29 26.7 (22-30) mmol/L BUN 15 7.3 L (9-20) mg/dL Creatinine 0.58 L 0.6 (0.66-1.25) mg/dL Glucose 146 H 89 (74-99) mg/dL Calcium 11.2 H 8.7 (8.4-10.2) mg/dL Adrenal panel 07/05/23 07/06/23 Range/Units 14:09 04:47 Sodium 142 137 (137-145) mmol/L Potassium 3.7 3.0 L (3.5-5.1) mmol/L Chloride 100 100 (98-107) mmol/L Carbon Dioxide 29 26.7 (22-30) mmol/L BUN 15 7.3 L (9-20) mg/dL Creatinine 0.58 L 0.6 (0.66-1.25) mg/dL Glucose 146 H 89 (74-99) mg/dL Calcium 11.2 H 8.7 (8.4-10.2) mg/dL Total Bilirubin 1.0 0.9 (0.2-1.3) mg/dL AST 228 H 118 H (17-59) U/L ALT 73 H 51 H (4-49) U/L Alkaline Phosphatase 85 78 (38-126) U/L Total Protein 8.2 6.1 L (6.3-8.2) g/dL Albumin 5.1 H 4.0 (3.5-5.0) g/dL
[2023-07-06] MEDS: POTASSIUM CHLORIDE ER 20 MEQ TAB.ER PO STA (12:59)
[2023-07-06] MEDS: FOLIC ACID 1 MG TAB PO SCH (12:59)
[2023-07-06] MEDS: MULTIVITAMINS, THERA 1 EACH TAB PO SCH (12:59)
[2023-07-06 23:40] VITALS: BP 126/81; PULSE 79; RESP 12; TEMP 98.8
--- NOTE | 2023-07-07 07:27 | P.DS ---
Providers Date of admission: 07/05/23 17:20 Expected date of discharge: 07/07/23 Attending physician: Martir Carrillo MD Consults: 07/06/23 10:52 Consult Physician Routine Consulting Provider: Andrea Garcia Consult Reason/Comments: reports of coffee ground emesis yesterday, eval for poss EGD Do you want consulting provider notified?: Yes Primary care physician: Stated None Hospital Course: THIS IS NOT A DISCHARGE SUMMARY, BUT A SUMMARY OF CARE PER DOCUMENTATION IN CHART, Patient LEFT AGAINST MEDICAL ADVICE on 07/07/23 at 4:42 AM Discharge Diagnosis: Acute alcoholic pancreatitis Alcohol abuse Elevated liver enzymes, likely secondary to longstanding daily alcohol abuse Pancytopenia with the presence of stomatocytes, likely secondary to alcohol abuse Nausea and vomiting with reported episode of coffee ground emesis Hypokalemia Hypomagnesemia, resolved Lactic acidosis, resolved with IV fluid hydration Nicotine dependence Hospital Course: Patient is a very pleasant 43-year-old male with a past medical history of anxiety, depression, PTSD, Parkinson's disease, nicotine dependence, and alcohol abuse. He presented to the emergency department on 07/05/2023 secondary to complaints of abdominal pain to epigastric region accompanied by nausea, v omiting, and diarrhea. Upon arrival to the hospital, patient underwent full evaluation. Vital signs in the emergency department show blood pressure 147/101, heart rate 78, respiratory rate 16, temp 98.2 F, and SpO2 of 97% on room air. EKG was completed showing normal sinus rhythm at 65 bpm with T wave inversion in leads aVL. Gallbladder ultrasound was completed showing hepatomegaly otherwise negative for acute process. Labs were completed and reviewed. CBC showing bicytopenia with WBC count of 3.7 and platelet count of 115. BMP was unremarkable. Lactic acid was elevated at 2.5. Calcium also slightly elevated at 11.2. Phosphorus elevated at 4.6 and magnesium was low at 1.1. Liver profile showing elevated AST of 228 and ALT of 73. Lipase elevated at 1070. Serum alcohol was less than 10. Influenza A, influenza B, RSV, and COVID PCR were negative. Patient was admitted under our services for treatment of alcohol intoxication pending withdrawal. General surgery was consulted for coffee ground emesis and pt was evaluated and scheduled for an EGD. However per documentation in chart, pt reportedly left AGAINST MEDICAL ADVICE on 07/07/2023 at 4:42 AM. Patient LEFT AGAINST MEDICAL ADVICE on 07/07/23 at 4:42 AM This document was prepared using [employer] dictation software. Please allow for errors in cigar patcher while rare they do occur. Doug Tavares NP rendered care for this patient independently, reviewed the findings and plan as documented in the note above. I did not physically speak with or examine the patient on this date. Patient Condition at Discharge: Undetermined Plan - Discharge Summary Discharge Rx Participant: Yes New Discharge Prescriptions: No Action Ibuprofen [Motrin Ib] 200 - 600 mg PO Q8H PRN PRN Reason: Pain Discharge Medication List Ibuprofen [Motrin Ib] 200 - 600 mg PO Q8H PRN 07/05/23 [History] Follow up Appointment(s)/Referral(s): None,Stated [Primary Care Provider] - 1-2 days Patient Instructions/Handouts: Seizure/Epilepsy Discharge Instructions & Follow-Up Discharge Disposition: LEFT AGAINST MEDICAL ADVICE
== END 2023-07-07 05:34 | disposition left against medical advice (07) | DRG 282 ==
LOC: EC 13:25 → 4SSUR 17:20
PROVIDERS: ADMIT Family Medicine; ATTEND Family Medicine
DX: K85.20 Alcohol induced acute pancreatitis without necrosis or infection (principal); D61.818 Other pancytopenia; F10.239 Alcohol dependence with withdrawal, unspecified; E87.20 Acidosis, unspecified; R16.0 Hepatomegaly, not elsewhere classified; G20.A1 Parkinson's disease without dyskinesia, without mention of fluctuations; F32.A Depression, unspecified; F17.210 Nicotine dependence, cigarettes, uncomplicated; E83.42 Hypomagnesemia; F43.10 Post-traumatic stress disorder, unspecified; K12.1 Other forms of stomatitis; E87.6 Hypokalemia; E83.52 Hypercalcemia; Y90.0 Blood alcohol level of less than 20 mg/100 ml; Z53.29 Procedure and treatment not carried out because of patient's decision for other reasons; Z28.310 Unvaccinated for COVID-19; Z88.0 Allergy status to penicillin; Z88.5 Allergy status to narcotic agent; Z86.73 Personal history of transient ischemic attack (TIA), and cerebral infarction without residual deficits; Z82.0 Family history of epilepsy and other diseases of the nervous system
CPT/HCPCS: 36415; 76705; 80053; 80320; 82150; 83605; 83690; 83735; 84100; 85025; 87636; 93005; 96361; 96365; 96366; 96375; 96376

== ENCOUNTER 2024-11-01 12:05 | Emergency (ER) | payer SELFPAY ==
[2024-11-01 12:13] VITALS: TEMP 97.6
--- NOTE | 2024-11-01 13:30 | ED ---
General Adult HPI - General Chief complaint: Abdominal Pain Stated complaint: abp Time Seen by Provider: 11/01/24 13:11 Source: patient, RN notes reviewed Mode of arrival: ambulatory Limitations: no limitations - History of Present Illness Initial comments: Patient is a 44-year-old male presents emergency department with concerns for abdominal discomfort. Symptoms started 4 days ago however worse 2 days ago. Patient does have associated nausea and vomiting. No constipation or diarrhea. No fever. 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 Patient does not drink much however did have a couple of drinks a couple days ago. - Related Data Home Medications Medication Instructions Recorded Confirmed Ibuprofen [Motrin Ib] 200 - 600 mg PO Q8H PRN 07/05/23 07/05/23 Previous Rx's Medication Instructions Recorded Famotidine [Pepcid] 20 mg PO BID #30 tablet 11/01/24 Ondansetron Odt [Zofran Odt] 4 mg PO Q8HR PRN #10 tab 11/01/24 Allergies Allergy/AdvReac Type Severity Reaction Status Date / Time amoxicillin Allergy Anaphylaxis Verified 11/01/24 12:13 bee pollen Allergy Anaphylaxis Verified 11/01/24 12:13 Penicillins Allergy Anaphylaxis Verified 11/01/24 12:13 acetaminophen [From [facility]] AdvReac Nausea & Verified 11/01/24 12:13 Vomiting hydrocodone [From [facility]] AdvReac Nausea & Verified 11/01/24 12:13 Vomiting Review of Systems ROS Statement: Those systems with pertinent positive or pertinent negative responses have been documented in the HPI. ROS Other: All systems not noted in ROS Statement are negative. Constitutional: Denies: fever Eyes: Denies: eye pain ENT: Denies: ear pain Respiratory: Denies: dyspnea Cardiovascular: Denies: chest pain Gastrointestinal: Reports: as per HPI, abdominal pain, nausea, vomiting. Denies: diarrhea, constipation Past Medical History Past Medical History: CVA/TIA Additional Past Medical History / Comment(s): Pancreatitis. History of Any Multi-Drug Resistant Organisms: None Reported Past Surgical History: Orthopedic Surgery Additional Past Surgical History / Comment(s): THUMB Past Anesthesia/Blood Transfusion Reactions: No Reported Reaction Past Psychological History: Anxiety, Depression, PTSD Smoking Status: Current every day smoker Past Alcohol Use History: Occasional Past Drug Use History: None Reported - Past Family History Mother Family Medical History: Thyroid Disorder Father Family Medical History: Seizure Disorder Additional Family Medical History / Comment(s): Brain Tumor. General Exam Limitations: no limitations General appearance: alert, in no apparent distress Head exam: Present: normocephalic Eye exam: Present: normal appearance Neck exam: Present: normal inspection Respiratory exam: Present: normal lung sounds bilaterally Cardiovascular Exam: Present: regular rate, normal rhythm Expanded Peripheral pulses: 2+: Radial (R), Radial (L), Posterior Tibialis (R), Posterior Tibialis (L) GI/Abdominal exam: Present: soft, tenderness (Moderate tenderness to light palpation, mostly in the epigastric region), normal bowel sounds. Absent: distended, rigid, pulsatile mass Extremities exam: Present: normal inspection. Absent: pedal edema, calf tenderness Neurological exam: Present: alert Psychiatric exam: Present: normal affect, normal mood Skin exam: Present: normal color Course Vital Signs 11/01/24 11/01/24 11/01/24 12:10 13:41 15:01 Temperature 97.6 F Pulse Rate 102 H 87 77 Respiratory 20 18 16 Rate Blood Pressure 109/75 114/74 123/86 O2 Sat by Pulse 99 97 98 Oximetry Medical Decision Making - Medical Decision Making Was pt. sent in by a medical professional or institution (, PA, BASE FILLER OPERATOR, urgent care, hospital, or half-way...) When possible be specific @ -No Did you speak to anyone other than the patient for history (EMS, parent, family, police, friend...)? What history was obtained from this source @ -No Did you review nursing and triage notes (agree or disagree)? Why? @ -I reviewed and agree with nursing and triage notes Were old charts reviewed (outside hosp., previous admission, EMS record, old EKG, old radiological studies, urgent care reports/EKG's, half-way records)? Report findings @ -No old charts were reviewed Differential Diagnosis (chest pain, altered mental status, abdominal pain women, abdominal pain men, vaginal bleeding, weakness, fever, dyspnea, syncope, headache, dizziness, GI bleed, back pain, seizure, CVA, palpatations, mental health, musculoskeletal)? @ -Differential Abdominal Pain Men: Appendicitis, cholecystitis, diverticulosis, ischemic bowel, pancreatitis, hepatitis, UTI, gastroenteritis, AAA, incarcerated hernia, bowel obstruction, constipation, inflammatory bowel, hepatitis, peptic ulcer disease, splenic infarction, perforated viscus, testicular torsion, this is not meant to be an all-inclusive list EKG interpreted by me (3pts min.). @ -As above X-rays interpreted by me (1pt min.). @ -None done CT interpreted by me (1pt min.). @ -CT scan abdomen pelvis without acute abnormality U/S interpreted by me (1pt. min.). @ -None done What testing was considered but not performed or refused? (CT, X-rays, U/S, labs)? Why? @ -None What meds were considered but not given or refused? Why? @ -None Did you discuss the management of the patient with other professionals (prof essionals i.e. , PA, BASE FILLER OPERATOR, lab, RT, psych nurse, high school social studies teacher, berry grower, teacher, youth officer, high risk case manager)? Give summary @ -No Was smoking cessation discussed for >3mins.? @ -No Was critical care preformed (if so, how long)? @ -No Were there social determinants of health that impacted care today? How? (Homelessness, low income, unemployed, alcoholism, drug addiction, transportation, low edu. Level, literacy, decrease access to med. care, care home, rehab)? @ -No Was there de-escalation of care discussed even if they declined (Discuss DNR or withdrawal of care, Hospice)? DNR status @ -No What co-morbidities impacted this encounter? (DM, HTN, Smoking, COPD, CAD, Cancer, CVA, ARF, Chemo, Hep., AIDS, mental health diagnosis, sleep apnea, morbid obesity)? @ -None Was patient admitted / discharged? Hospital course, mention meds given and route, prescriptions, significant lab abnormalities, going to OR and other pertinent info. @ -Patient reevaluated and resting comfortably in bed. Patient looks and feels much better. Patient is updated on results and need for follow-up. Undiagnosed new problem with uncertain prognosis? @ -No Drug Therapy requiring intensive monitoring for toxicity (Heparin, Nitro, Insulin, Cardizem)? @ -No Were any procedures done? @ -No Diagnosis/symptom? @ -Vomiting, abdominal pain Acute, or Chronic, or Acute on Chronic? @ -Acute, acute Uncomplicated (without systemic symptoms) or Complicated (systemic symptoms)? @ -Default Side effects of treatment? @ -No Exacerbation, Progression, or Severe Exacerbation? @ -No Poses a threat to life or bodily function? How? (Chest pain, [place], [place], pneumonia, PE, COPD, DKA, ARF, appy, cholecystitis, CVA, Diverticulitis, Homicidal, Suicidal, threat to staff... and all critical care pts) @ -No - Lab Data Result diagrams: 11/01/24 13:30 11/01/24 13:30 Lab Results 11/01/24 11/01/24 11/01/24 Range/Units 13:30 13:30 13:30 WBC 18.77 H (4.50-10.00) 10*3/uL RBC 4.82 (4.40-5.60) 10*6/uL Hgb 14.8 (13.0-17.0) g/dL Hct 42.9 (39.6-50.0) % MCV 89.0 (80.0-97.0) fL MCH 30.7 (27.0-32.0) pg MCHC 34.5 (32.0-37.0) g/dL Plt Count 253 (140-440) 10*3/uL MPV 9.8 (9.5-12.2) fL Immature Gran % (Auto) 0.3 % Neutrophils % 89.4 % Lymphocytes % 5.5 % Monocytes % 4.5 % Eosinophils % 0.0 % Basophils % 0.3 % Immature Gran # 0.06 H (0.00-0.04) 10*3/uL Neutrophils # 16.79 H (1.80-7.70) 10*3/uL Lymphocytes # 1.03 (0.90-5.00) 10*3/uL Monocytes # 0.84 (0.20-1.00) 10*3/uL Eosinophils # 0.00 L (0.04-0.35) 10*3/uL Basophils # 0.05 (0.00-0.10) 10*3/uL PT 11.3 (10.0-12.5) sec INR 1.0 (<1.2) APTT 25.3 (22.0-30.0) sec Sodium 136 L (137-145) mmol/L Potassium 3.9 (3.5-5.1) mmol/L Chloride 96 L (98-107) mmol/L Carbon Dioxide 27 (22-30) mmol/L Anion Gap 13 mmol/L BUN 18 (9-20) mg/dL Creatinine 0.69 (0.66-1.25) mg/dL Est GFR (CKD-EPI)AfAm >90 (>60 ml/min/1.73 sqM) Est GFR (CKD-EPI)NonAf >90 (>60 ml/min/1.73 sqM) Glucose 119 H (74-99) mg/dL Calcium 9.4 (8.4-10.2) mg/dL Total Bilirubin 2.1 H (0.2-1.3) mg/dL AST 41 (17-59) U/L ALT 36 (4-49) U/L Alkaline Phosphatase 128 H (38-126) U/L Total Protein 7.5 (6.3-8.2) g/dL Albumin 4.6 (3.5-5.0) g/dL Amylase 36 (30-110) U/L Lipase 31 (23-300) U/L Disposition Clinical Impression: Abdominal pain Disposition: HOME SELF-CARE Condition: Stable Instructions (If sedation given, give patient instructions): Abdominal Pain (ED) Additional Instructions: Please do follow-up with your primary care physician in the next day or 2 for recheck. Prescription for nausea medication and medicine for your stomach sent to pharmacy. Return for uncontrolled vomiting, pain, fever, worsening or changing symptoms or other concerns. Prescriptions: Famotidine [Pepcid] 20 mg PO BID #30 tablet Ondansetron Odt [Zofran Odt] 4 mg PO Q8HR PRN #10 tab PRN Reason: Nausea Is patient prescribed a controlled substance at d/c from ED?: No Referrals: None,Stated [Primary Care Provider] - 1-2 days Forms: Area PCPs Time of Disposition: 15:09
[2024-11-01] MEDS: SODIUM CHLORIDE 0.9% 1,000 ML IV ONE (13:42)
[2024-11-01] MEDS: FAMOTIDINE 20 MG/2 ML VIAL IV STA (13:43)
[2024-11-01] MEDS: ONDANSETRON 4 MG/2 ML VIAL IVP STA (13:43)
[2024-11-01] MEDS: HYDROmorphone 1 MG/ML 1 ML SYRINGE IVP STA (13:45)
[2024-11-01 13:54] LABS: Basophils # (A) 0.05 10*3/uL (0.00-0.10); Basophils % (A) 0.3 %; Eosinophils # (A) 0.00 10*3/uL (0.04-0.35); Eosinophils % (A) 0.0 %; HCT 42.9 % (39.6-50.0); HGB 14.8 g/dL (13.0-17.0); Lymphocytes # (A) 1.03 10*3/uL (0.90-5.00); Lymphocytes % (A) 5.5 %; MCH 30.7 pg (27.0-32.0); MCHC 34.5 g/dL (32.0-37.0); MCV 89.0 fL (80.0-97.0); Monocytes # (A) 0.84 10*3/uL (0.20-1.00); Monocytes % (A) 4.5 %; Neutrophils # (A) 16.79 10*3/uL (1.80-7.70); Neutrophils % (A) 89.4 %; Platelet Count 253 10*3/uL (140-440); RBC 4.82 10*6/uL (4.40-5.60); RDW 14.5 % (11.5-14.5); WBC 18.77 10*3/uL (4.50-10.00)
[2024-11-01 14:11] LABS: ALT 36 U/L (4-49); AST 41 U/L (17-59); African American GFR (CKD) >90 (>60 ml/min/1.73 sqM); Albumin 4.6 g/dL (3.5-5.0); Alkaline Phosphatase 128 U/L (38-126); Amylase 36 U/L (30-110); Anion Gap 13 mmol/L; Blood Urea Nitrogen 18 mg/dL (9-20); Calcium 9.4 mg/dL (8.4-10.2); Carbon Dioxide 27 mmol/L (22-30); Chloride 96 mmol/L (98-107); Glucose 119 mg/dL (74-99); INR 1.0 (<1.2); Lipase 31 U/L (23-300); Non-African American GFR(CKD) >90 (>60 ml/min/1.73 sqM); Partial Thromboplastin Time 25.3 sec (22.0-30.0); Potassium 3.9 mmol/L (3.5-5.1); Prothrombin Time 11.3 sec (10.0-12.5); Sodium 136 mmol/L (137-145); Total Protein 7.5 g/dL (6.3-8.2)
--- NOTE | 2024-11-01 14:58 | CT ---
EXAMINATION TYPE: CT abdomen pelvis w con DATE OF EXAM: 11/01/2024 COMPARISON: None CLINICAL INDICATION: Male, 44 years old with history of abdominal pain; PHH, Pt states he has had clements creatitis 2x in the passed, pt thinks he is having a flare up. TECHNIQUE: Performed without Oral Contrast and with IV Contrast, patient injected with 100 ml mL of Isovue 300. CT DLP: 587.[address] CTDI: mGy Automated exposure control for dose reduction was used. FINDINGS: The lung bases are clear. The gallbladder is normal without distention, wall thickening, pericholecystic fluid or gallstones. T here is no biliary ductal dilatation. There is moderate hepatomegaly. There is no focal liver mass. The pancreas is normal without evidence of inflammation or pancreatitis or mass. There is no splenomegaly or adrenal mass. There is no solid renal mass or hydronephrosis and there is homogeneous contrast enhancement of the r enal parenchyma. The caliber the abdominal aorta is normal is no retroperitoneal adenopathy or hemorr esther. The bowel loops are normal in caliber and there is no evidence of dilatation or obstruction. No infla mmatory changes are identified in the bowel wall or mesentery. There is no free intraperitoneal air or fluid. No pelvic mass, free fluid, abscess or adenopathy. The osseous structures and soft tissues are intact. IMPRESSION: 1. No acute changes within the abdomen or pelvis. There is no CT evidence of acute pancreatitis. 2. Moderate hepatomegaly. [facility], , 11/01/2024 2:56 PM
[2024-11-01 15:05] VITALS: RESP 16
[2024-11-01 15:17] VITALS: BP 118/77; PULSE 79
== END 2024-11-01 15:17 | disposition home or self-care (01) ==
LOC: EC 12:05
DX: R10.9 Unspecified abdominal pain (principal); Z86.73 Personal history of transient ischemic attack (TIA), and cerebral infarction without residual deficits; F17.200 Nicotine dependence, unspecified, uncomplicated; Z88.5 Allergy status to narcotic agent; Z91.030 Bee allergy status; Z88.0 Allergy status to penicillin; Z88.8 Allergy status to other drugs, medicaments and biological substances
CPT/HCPCS: 36415; 80053; 82150; 83690; 85025; 85610; 85730; 74177; 99284; 96374; 96375 ×2; 96361 ×2; J2405; J1171; Q9967; J1308